=== PATIENT | female | born 1950 | race Two or more races ===

== ENCOUNTER 2020-01-24 14:14 | Outpatient (REF) | payer MEDICARE, SELFPAY ==
--- NOTE | 2020-01-24 14:32 | US_ITS ---
EXAMINATION: US VENOUS ULTRASOUND WITH DOPPLER LOWER EXTREMITY, RIGHT CLINICAL INFORMATION: Localized edema right lower extremity. Assess for occult DVT COMPARISON: Venous ultrasound right lower extremity 06/01/2013 TECHNIQUE: Ultrasound of the deep veins is performed from the hip to the calf with compression sonography and color and pulse Doppler assessment. Spectral analysis with color-flow imaging is performed. FINDINGS: There is normal venous compression and respiratory variation and augmented flow. The visualized common femoral vein, superficial femoral vein, profunda femoral vein, popliteal vein, and the trifurcation region shows no evidence of deep venous thrombosis. There is no popliteal fossa cyst. US/US venous duplex LE RT IMPRESSION: No DVT demonstrated in the right lower extremity.
== END 2020-01-24 14:15 | disposition home or self-care (01) ==
LOC: HO.HMGCX 14:14
PROVIDERS: PCP Internal Medicine; Visit Provider Physician Assistant
DX: R60.0 Localized edema (principal)
CPT/HCPCS: 93971

== ENCOUNTER → 2020-01-31 14:52 | Outpatient (BNV) | payer MEDICARE, SELFPAY | PROVIDERS: PCP Internal Medicine; Visit Provider Internal Medicine Medical Oncology | DX: M79.604 Pain in right leg (principal); M79.605 Pain in left leg; Z86.718 Personal history of other venous thrombosis and embolism | CPT/HCPCS: 99213; 99214 ==

== ENCOUNTER → 2020-02-15 08:17 | Outpatient (BNVA) | payer MEDICARE, SELFPAY | PROVIDERS: PCP Internal Medicine; Visit Provider Student in an Organized Health Care Education/Training Program | DX: M17.12 Unilateral primary osteoarthritis, left knee (principal); M17.11 Unilateral primary osteoarthritis, right knee; D86.9 Sarcoidosis, unspecified | CPT/HCPCS: 99212 ==

== ENCOUNTER 2020-03-20 13:59 | Outpatient (REF) | payer MEDICARE, SELFPAY ==
--- NOTE | 2020-03-20 14:03 | MM_ITS ---
EXAMINATION: MM SCREENING DIGITAL BREAST TOMOSYNTHESIS, BILATERAL CLINICAL INFORMATION: Screening. Asymptomatic. The lifetime risk of breast cancer based on the Tyrer-Cuzick Model is 4%. COMPARISON: Mammography: 11/05/2018, 10/23/2017, 06/23/2015 TECHNIQUE: Digital breast tomosynthesis is performed in both the craniocaudal and mediolateral oblique views along with computer-aided detection (CAD). Synthesized 2D images are generated from the tomosynthesis. FINDINGS: There are scattered areas of fibroglandular density (ACR BI-RADS breast composition Category b). There are no significant masses, abnormal calcifications, or other abnormalities. Parenchymal pattern is similar to prior exams. No significant changes. MM/MM tomosynthesis screening BI IMPRESSION: No mammographic evidence of malignancy. ASSESSMENT: BI-RADS 1: Negative RECOMMENDATION: Routine annual mammography screening. This patient's information was entered into a reminder system with a target due date for their next mammogram.
== END 2020-03-20 14:00 | disposition home or self-care (01) ==
LOC: HO.MAMMO 13:59
PROVIDERS: PCP Internal Medicine; Visit Provider Internal Medicine
DX: Z12.31 Encounter for screening mammogram for malignant neoplasm of breast (principal)
CPT/HCPCS: 77063; 77067

== ENCOUNTER → 2020-03-28 15:02 | Outpatient (BNVA) | payer MEDICARE, SELFPAY | PROVIDERS: PCP Internal Medicine; Referring Provider Internal Medicine; Visit Provider Student in an Organized Health Care Education/Training Program | DX: Z13.89 Encounter for screening for other disorder (principal) | CPT/HCPCS: Q3014 ==

== ENCOUNTER → 2020-08-15 13:23 | Outpatient (BNVA) | payer MEDICARE, SELFPAY | PROVIDERS: PCP Internal Medicine; Visit Provider Student in an Organized Health Care Education/Training Program | DX: M25.50 Pain in unspecified joint (principal); Z79.899 Other long term (current) drug therapy | CPT/HCPCS: 99212 ==

== ENCOUNTER 2020-08-24 07:26 | Outpatient (REF) | payer MEDICARE, SELFPAY ==
--- NOTE | ~2020-08-24 | XR_ITS ---
EXAMINATION: XR KNEE, LEFT CLINICAL INFORMATION: Osteoarthritis. COMPARISON: 08/21/2015 TECHNIQUE: 4 views of the left knee. FINDINGS: No acute fracture or dislocation of the left knee is identified. There has been some progression in degenerative change involving the lateral joint space compartment with mild narrowing and marginal spurring present. There is again noted to be significant degenerative change of the patellofemoral joint with narrowing of the lateral facet and prominent marginal spurring. There is a small left knee effusion. There is a faintly seen rim calcified density about the region of the posterior inferior joint space which may represent a calcification/loose body. XR/XR knee LT 4V IMPRESSION: Some progression in degenerative change of the patellofemoral and lateral joint space compartment. Loose body within the region of the popliteal fossa.
[2020-08-24 09:14] LABS: Alanine Aminotransferase 15 U/L (0-31); Albumin Level 4.6 g/dL (3.5-5.0); Alkaline Phosphatase 87 U/L (39-117); Anion Gap 12 (12-20); Aspartate Amino Transferase 20 U/L (5-31); Bilirubin Total 0.5 mg/dL (0.0-1.0); Blood Urea Nitrogen 17 mg/dL (9-16); Calcium 9.4 mg/dL (8.4-10.2); Carbon Dioxide 28 mmol/L (22-29); Chloride 105 mmol/L (96-108); Cholesterol 204 mg/dL; Estimated Glomerular Filt Rate 59; Glucose Fasting 122 mg/dL (60-99); HDL Cholesterol 56 mg/dL; LDL Cholesterol Calculated 128 mg/dl; Potassium 4.6 mmol/L (3.3-5.1); Sodium 140 mmol/L (135-145); Triglycerides 102 mg/dL
== END 2020-08-24 07:27 | disposition home or self-care (01) ==
LOC: HO.LAB 07:26
PROVIDERS: Absent Provider Student in an Organized Health Care Education/Training Program; PCP Internal Medicine; Visit Provider Internal Medicine
DX: M17.12 Unilateral primary osteoarthritis, left knee (principal); M25.50 Pain in unspecified joint; E78.5 Hyperlipidemia, unspecified
CPT/HCPCS: 36415; 73564; 80053; 80061

== ENCOUNTER → 2020-09-06 12:39 | Outpatient (BNVA) | payer MEDICARE, SELFPAY | PROVIDERS: PCP Internal Medicine; Visit Provider Orthopaedic Surgery | DX: M17.12 Unilateral primary osteoarthritis, left knee (principal) | CPT/HCPCS: 99202 ==

== ENCOUNTER 2020-11-23 07:20 | Outpatient (REF) | payer MEDICARE, SELFPAY ==
[2020-11-23 08:33] LABS: Alanine Aminotransferase 23 U/L (0-31); Albumin Level 4.4 g/dL (3.5-5.0); Alkaline Phosphatase 78 U/L (39-117); Anion Gap 11 (12-20); Aspartate Amino Transferase 22 U/L (5-31); Bilirubin Total 0.7 mg/dL (0.0-1.0); Blood Urea Nitrogen 17 mg/dL (9-16); Calcium 9.7 mg/dL (8.4-10.2); Carbon Dioxide 28 mmol/L (22-29); Chloride 106 mmol/L (96-108); Cholesterol 161 mg/dL; Estimated Glomerular Filt Rate > 60; Glucose Fasting 117 mg/dL (60-99); HDL Cholesterol 49 mg/dL; LDL Cholesterol Calculated 77 mg/dl; Potassium 4.1 mmol/L (3.3-5.1); Sodium 141 mmol/L (135-145); Total Protein 6.9 g/dL (6.5-8.0); Triglycerides 175 mg/dL
[2020-11-23 09:02] LABS: Thyroid Stimulating Hormone 4.32 uIU/mL (0.32-4.0)
== END 2020-11-23 07:21 | disposition home or self-care (01) ==
LOC: HO.LAB 07:20
PROVIDERS: PCP Internal Medicine; Visit Provider Internal Medicine
DX: E78.5 Hyperlipidemia, unspecified (principal); R73.02 Impaired glucose tolerance (oral); E66.9 Obesity, unspecified
CPT/HCPCS: 36415; 80053; 80061; 84443

== ENCOUNTER 2021-01-17 09:49 | Outpatient (REF) | payer MEDICARE, SELFPAY ==
--- NOTE | ~2021-01-17 | US_ITS ---
EXAMINATION: US THYROID CLINICAL INFORMATION: Goiter COMPARISON: None TECHNIQUE: Linear transducer reyes-scale and color Doppler examination with attention to the region of the thyroid. FINDINGS: SIZE: Measurements of the thyroid lobes and nodules are given in sagittal, anteroposterior and transverse dimensions respectively. Right Thyroid Lobe: 4.6 x 1.3 x 1.7 cm, volume 5.4 mL. Parenchyma: The gland echotexture is homogeneous. Thyroid vascularity is normal. Left Thyroid Lobe: 3.2 x 1.4 x 1.2 cm, volume 2.9 mL. Parenchyma: The gland echotexture is homogeneous. Thyroid vascularity is normal. Isthmus: 0.22 cm in maximum AP dimension. Estimated total number of nodules greater than or equal to 1 cm: 0. Cottage Master nodules are described as follows: 1. Location: Right mid. Size: 0.4 x 0.4 x 0.5 cm, volume 0.04 mL. Nodule characteristics: Composition: Solid/almost completely solid (2). Echogenicity: Hypoechoic (2). Shape: Not taller than wide (0). Margins: Smooth (0). Echogenic Foci: Punctate echogenic foci (3). ACR TI-RADS total points: 7 ACR TI-RADS category: 5 NODES: No lymphadenopathy is seen in the tissue surrounding the thyroid gland. US/US thyroid IMPRESSION: Solitary 0.5 cm nodule in the right lobe. This is a category 5 nodule. Annual follow-up for 5 years is recommended. ACR TI-RADS RECOMMENDATION REFERENCE: Ultrasound-guided fine-needle aspiration, followup ultrasound, no further follow up. * TR1 (0 point) and TR 2 (2 points): No FNA or follow up * TR3 (3 points): FNA if more than or equal to 2.5 cm in maximum dimension, followup ultrasound in 1, 3 and 5 years if 1.5 to 2.4 cm in maximum dimension. * TR4 (4-6 points): FNA if more than or equal to 1.5 cm in maximum dimension, followup ultrasound in 1, 2, 3 and 5 years if 1 to 1.4 cm in maximum dimension. * TR5 (more than or equal to 7 points): FNA if more than or equal to 1 cm in maximum dimension, followup ultrasound every year for 5 years if 0.5 to 0.9 cm in maximum dimension. * TR3, TR4 or TR5 nodules that are below the size threshold for follow up receive no follow up.
== END 2021-01-17 09:50 | disposition home or self-care (01) ==
LOC: HO.US 09:49
PROVIDERS: PCP Internal Medicine; Visit Provider Internal Medicine
DX: E04.9 Nontoxic goiter, unspecified (principal)
CPT/HCPCS: 76536

== ENCOUNTER 2021-03-18 08:48 | Outpatient (REF) | payer MEDICARE, SELFPAY ==
--- NOTE | ~2021-03-18 | MM_ITS ---
EXAMINATION: MM DIAGNOSTIC DIGITAL BREAST TOMOSYNTHESIS, BILATERAL US DIAGNOSTIC ULTRASOUND BREAST, RIGHT CLINICAL INFORMATION: Recent pain lower outer right breast. 1 cm palpable area noted at clinical exam 7:00 position 6 cm from nipple. Due for yearly. The lifetime risk of breast cancer based on the Tyrer-Cuzick Model is 4%. COMPARISON: Mammography: 03/20/2020, 11/05/2018, 10/23/2017, 06/23/2015 TECHNIQUE: Digital breast tomosynthesis is performed in both the craniocaudal and mediolateral oblique views along with computer-aided detection (CAD). Synthesized 2D images are generated from the tomosynthesis. Additional left CC view is provided. Ultrasound right breast is targeted to the areas of patient and clinical concern. Grayscale imaging and color Doppler are performed without and with harmonics. FINDINGS: There are scattered areas of fibroglandular density (ACR BI-RADS breast composition Category b). Parenchymal pattern is similar to prior exams. There is no interval mass or developing density or architectural abnormality. No abnormal calcifications. No skin thickening or coarsening of the Taras's ligaments. The axilla and skin contours are unremarkable. Ultrasound right breast demonstrates no cystic or solid mass or architectural abnormality. No focal duct ectasia. No skin thickening or edema tracking in soft tissue planes. Results are discussed with the patient at time of visit. MM/MM tomosynthesis diagnostic BI IMPRESSION: No mammographic evidence of malignancy or inflammatory changes. Right breast ultrasound unremarkable. ASSESSMENT: BI-RADS 1: Negative RECOMMENDATION: 1. Patient should be managed based on the clinical impression. If clinically indicated, further evaluation may be considered with surgical consult. Decision to proceed with biopsy should be based on clinical grounds and degree of clinical concern. 2. Otherwise, routine annual screening mammography. This patient's information was entered into a reminder system with a target due date for their next mammogram.
== END 2021-03-18 08:49 | disposition home or self-care (01) ==
LOC: HO.MAMMO 08:48
PROVIDERS: Visit Provider Nurse Practitioner Family
DX: N64.4 Mastodynia (principal)
CPT/HCPCS: 76642; 77062; 77066

== ENCOUNTER 2021-04-12 07:05 | Outpatient (REF) | payer MEDICARE, SELFPAY ==
[2021-04-12 08:03] LABS: Alanine Aminotransferase 20 U/L (0-31); Albumin Level 4.5 g/dL (3.5-5.0); Alkaline Phosphatase 72 U/L (39-117); Anion Gap 13 (12-20); Aspartate Amino Transferase 21 U/L (5-31); Bilirubin Total 0.6 mg/dL (0.0-1.0); Blood Urea Nitrogen 18 mg/dL (9-16); Carbon Dioxide 29 mmol/L (22-29); Chloride 105 mmol/L (96-108); Cholesterol 244 mg/dL; Estimated Glomerular Filt Rate > 60; Glucose Fasting 112 mg/dL (60-99); HDL Cholesterol 62 mg/dL; LDL Cholesterol Calculated 161 mg/dl; Potassium 4.1 mmol/L (3.3-5.1); Sodium 143 mmol/L (135-145); Total Protein 7.2 g/dL (6.5-8.0); Triglycerides 105 mg/dL
[2021-04-12 08:26] LABS: Thyroid Stimulating Hormone 4.69 uIU/mL (0.32-4.0)
[2021-04-15 17:46] LABS: Thyroglobulin Antibodies <1 IU/mL (< or = 1); Thyroid Peroxidase Antibodies 1 IU/mL (<9)
== END 2021-04-12 07:06 | disposition home or self-care (01) ==
LOC: HO.LAB 07:05
PROVIDERS: PCP Internal Medicine; Visit Provider Internal Medicine
DX: E66.9 Obesity, unspecified (principal); E78.5 Hyperlipidemia, unspecified; R79.89 Other specified abnormal findings of blood chemistry; R73.02 Impaired glucose tolerance (oral)
CPT/HCPCS: 36415; 80053; 80061; 84439; 84443; 86376; 86800

== ENCOUNTER 2021-05-22 06:51 | Outpatient (REF) | payer MEDICARE, SELFPAY ==
[2021-05-22 07:03] LABS: MANUAL DIFF FLAG NO
--- NOTE | 2021-05-22 07:07 | ECG_ITS ---
Test Reason : z01.818 Blood Pressure : / mmHG Vent. Rate : 053 BPM Atrial Rate : 053 BPM P-R Int : 168 ms QRS Dur : 082 ms QT Int : 436 ms P-R-T Axes : 039 -33 004 degrees QTc Int : 409 ms Sinus bradycardia Left axis deviation Abnormal ECG When compared with ECG of 12-FEB-2019 12:17, No significant change was found Referred By: Preethi Hsu Electronically Signed By:KALYAN TRIVEDI MD
[2021-05-22 07:21] LABS: Basophils Percent Auto 0.2 % (0-2); Eosinophils Absolute Auto 0.1 X10*3/uL (0.0-0.4); Eosinophils Percent Auto 2.9 % (0-4); Hematocrit 39.6 % (37.0-47.0); Hemoglobin 12.9 g/dl (12.0-16.0); Imm Gran Abs Auto 0.01 X10*3/uL (0.00-0.03); Imm Gran Pct Auto 0.2 % (0.0-0.4); Lymphocytes Absolute Auto 1.9 X10*3/uL (1.2-4.9); Lymphocytes Percent Auto 38.5 % (20-40); Mean Corpuscular HGB Conc 32.6 g/dl (31.0-35.0); Mean Corpuscular Hemoglobin 28.6 pg (27.0-33.0); Mean Corpuscular Volume 87.8 fL (80.0-98.0); Mean Platelet Volume 9.5 fL (9.4-12.3); Monocytes Absolute Auto 0.3 X10*3/uL (0.1-1.2); Neutrophils Absolute Auto 2.5 x10*3/uL (2.0-8.3); Neutrophils Percent Auto 51.2 % (45-73); Platelet Count 223 X10*3/uL (160-400); Red Blood Count 4.51 X10*6/uL (4.20-5.50); Red Cell Distribution Width 13.3 % (11.0-16.0); White Blood Count 4.9 X10*3/uL (4.8-10.8)
[2021-05-22 07:55] LABS: Alanine Aminotransferase 25 U/L (0-31); Albumin Level 4.4 g/dL (3.5-5.0); Alkaline Phosphatase 81 U/L (39-117); Anion Gap 11 (12-20); Aspartate Amino Transferase 20 U/L (5-31); Bilirubin Total 0.5 mg/dL (0.0-1.0); Blood Urea Nitrogen 14 mg/dL (9-16); Calcium 9.8 mg/dL (8.4-10.2); Carbon Dioxide 28 mmol/L (22-29); Chloride 105 mmol/L (96-108); Estimated Glomerular Filt Rate > 60; Glucose Fasting 112 mg/dL (60-99); Potassium 4.3 mmol/L (3.3-5.1); Sodium 140 mmol/L (135-145); Total Protein 6.9 g/dL (6.5-8.0)
[2021-05-22 08:18] LABS: Thyroid Stimulating Hormone 4.11 uIU/mL (0.32-4.0)
== END 2021-05-22 06:52 | disposition home or self-care (01) ==
LOC: HO.LAB 06:51
PROVIDERS: PCP Internal Medicine; Visit Provider Internal Medicine
DX: Z01.818 Encounter for other preprocedural examination (principal); D64.9 Anemia, unspecified; K21.9 Gastro-esophageal reflux disease without esophagitis; R94.6 Abnormal results of thyroid function studies
CPT/HCPCS: 36415; 80053; 84443; 85025; 93005

== ENCOUNTER 2021-05-27 09:14 | Outpatient (REF) | payer MEDICARE, SELFPAY ==
[2021-05-27 11:04] LABS: CDiff Gene PCR NEGATIVE (Negative)
== END 2021-05-27 09:15 | disposition home or self-care (01) ==
LOC: HO.LNP 09:14
PROVIDERS: Visit Provider Internal Medicine
DX: K21.9 Gastro-esophageal reflux disease without esophagitis (principal)
CPT/HCPCS: 87493

== ENCOUNTER → 2021-06-05 13:34 | Outpatient (BNVA) | payer MEDICARE, SELFPAY | PROVIDERS: PCP Internal Medicine; Visit Provider Nurse Practitioner Family | DX: M25.50 Pain in unspecified joint (principal) | CPT/HCPCS: 99212 ==

== ENCOUNTER 2021-06-10 10:12 | Day surgery (SDC) | payer MEDICARE, SELFPAY ==
[2021-06-04 16:31] VITALS: BMI 33.3
--- NOTE | 2021-06-07 08:49 | MHC.SHP ---
Pre-Procedural Eval Section A Date of Service: 06/07/21 The patient is an INPATIENT: No Changes since office visit: No Cold of Flu in the past 2 weeks, No New Medical Problems, No Changes in Medication and No Patient answered all questions The History & Physical has been completed within 30 days and I have reviewed it.: Yes Section B Chief Complaint: left and right upper eyelid Allergies: Allergies Allergy/AdvReac Type Severity Reaction Status Date / Time codeine [CODEINE] Allergy Intermediate TACHYCARDIA Verified 06/05/21 13:49 phentermine Allergy Intermediate Palpitation Verified 06/05/21 13:49 s Plan Diagnosis/Plan: Unchanged I have reviewed the history and physical and performed a pertinent physical examination on my patient. No changes have occurred unless specified.
--- NOTE | 2021-06-07 10:30 | P.CONAN_ITS ---
Documented by User: Maria Isabel Santillan NP 06/07/21 10:35 HPI - Anesthesia Eval Consult details Narrative: 70yo F for Bilateral Blepharoplasty PMFSH Active Problems Active Problems: All Active Problems (Updated 05/16/21 @ 14:48 by Preethi Hsu MD) Edema of right lower extremity (Acute) Right leg DVT (Acute) Primary osteoarthritis of right knee (Acute) Polyarthralgia (Acute) Breast pain, right (Acute) Screening for breast cancer (Acute) Right shoulder pain (Acute) Pre-op evaluation (Acute) Thyroid nodule (Acute) Hypothyroidism (Acute) Vertigo (Acute) GERD (gastroesophageal reflux disease) (Acute) Mild major depression, single episode (Acute) Goiter (Acute) Elevated TSH (Acute) Obese (Acute) Impaired glucose tolerance (Acute) Mixed hyperlipidemia (Acute) Sarcoid (Acute) Primary osteoarthritis of left knee (Acute) Past Medical History Medical History Anxiety Elevated TSH GERD (gastroesophageal reflux disease) Goiter History of DVT (deep vein thrombosis) Hypothyroidism Impaired glucose tolerance Mild major depression, single episode Mixed hyperlipidemia Obese Pre-op evaluation Primary osteoarthritis of left knee Sarcoid Thyroid nodule Vertigo Family History Family History Father Renal cancer Mother No problems noted. Brother Myocardial infarction Surgical History Surgical History History of section History of tubal ligation Hx of colonoscopy Social History Social History Housing: House Alcohol intake: current Alcohol intake frequency: holidays/special occasions only Alcohol type: wine Patient Tobacco Use Status: Never used Tobacco e-Cigarette/Vaping Use: Never Used Second Hand Smoke Exposure: No Use of substances other than those prescribed or required for medical reasons: No Have you been hit, kicked, punched, or otherwise hurt by someone within the past year? If so, by whom?: No Are you DNR?: No Advance Directives: No Advance Directives Information Provided: Yes Advance Directives on File: No service: No Current occupational status: retired Cognitive needs: No Hearing needs: No Vision needs: No Meds Allergies Allergy/AdvReac Type Severity Reaction Status Date / Time codeine [CODEINE] Allergy Intermediate TACHYCARDIA Verified 06/10/21 11:03 phentermine Allergy Intermediate Palpitation Verified 06/10/21 11:03 s Home Medications Medication Instructions Recorded Confirmed Last Taken Type acetaminophen 650 mg 650 mg PO Q12H PRN 02/15/20 06/04/21 Unknown History tablet,extended release (Tylenol Arthritis Pain) bupropion HCl 150 mg 24 hr tablet, 150 mg PO QAM 06/04/21 06/04/21 Unknown History extended release diclofenac sodium 1 % topical gel 2 g TOPICAL BID PRN 06/04/21 06/04/21 Unknown History Exam Exam Date and Time: June 07, 2021 1030 Height,Weight and Vital Signs: Height 5 ft 3 in Weight 85.275 kg Narrative Narrative: EKG 05/2021 Vent. Rate : 053 BPM ? ? Atrial Rate : 053 BPM ?? P-R Int : 168 ms? QRS Dur : 082 ms ? ? QT Int : 436 ms ? ? ? P-R-T Axes : 039 -33 004 degrees ?? QTc Int : 409 ms ? Sinus bradycardia Left axis deviation Abnormal ECG When compared with ECG of 12-FEB-2019 12:17, No significant change was found Assessment and Plan Assessment Anesthesia Assessment: Chart Reviewed Documented by User: Mikki Villa MD 06/10/21 11:44 [facility] Past Medical History Medical History Anxiety Elevated TSH GERD (gastroesophageal reflux disease) Goiter History of DVT (deep vein thrombosis) Hypothyroidism Impaired glucose tolerance Mild major depression, single episode Mixed hyperlipidemia Obese Pre-op evaluation Primary osteoarthritis of left knee Sarcoid Thyroid nodule Vertigo Family History Family History Father Renal cancer Mother No problems noted. Brother Myocardial infarction Surgical History Surgical History History of section History of tubal ligation Hx of colonoscopy History of Problems with Anesthesia: No Social History Social History Housing: House Alcohol intake: current Alcohol intake frequency: holidays/special occasions only Alcohol type: wine Patient Tobacco Use Status: Never used Tobacco e-Cigarette/Vaping Use: Never Used Second Hand Smoke Exposure: No Use of substances other than those prescribed or required for medical reasons: No Have you been hit, kicked, punched, or otherwise hurt by someone within the past year? If so, by whom?: No Are you DNR?: No Advance Directives: No Advance Directives Information Provided: Yes Advance Directives on File: No service: No Current occupational status: retired Cognitive needs: No Hearing needs: No Vision needs: No Meds Allergies Allergy/AdvReac Type Severity Reaction Status Date / Time codeine [CODEINE] Allergy Intermediate TACHYCARDIA Verified 06/10/21 11:03 phentermine Allergy Intermediate Palpitation Verified 06/10/21 11:03 s Home Medications Medication Instructions Recorded Confirmed Last Taken Type acetaminophen 650 mg 650 mg PO Q12H PRN 02/15/20 06/04/21 Unknown History tablet,extended release (Tylenol Arthritis Pain) bupropion HCl 150 mg 24 hr tablet, 150 mg PO QAM 06/04/21 06/04/21 Unknown History extended release diclofenac sodium 1 % topical gel 2 g TOPICAL BID PRN 06/04/21 06/04/21 Unknown History Exam Airway Mallampati Class: II TM Dist: >3cm Neck ROM: Full Denture: Upper and Lower Loose/Missing/Broken Teeth: Yes, Upper and Lower Heart: RRR Lungs: CTA Assessment and Plan Final Anesthetic Review History of Problems with Anesthesia: No NPO: Yes ASA Class: II Final Preanesthetic Review: Meds/Allgs Chart Reviewed, Consent Obtained/Reviewed and Anes Risks/Benef Reviewed Patient Risk: Low Procedure Risk: Low Anesthetic Plan Anesthetic Plan: MAC: Disposition: Standard PACU
[2021-06-10 11:04] VITALS: BP 146/75; PULSE 62; RESP 16; TEMP 36.4; O2SAT 98
[2021-06-10] MEDS: Lactated Ringers 500 ML 50 ML IV (11:12)
--- NOTE | 2021-06-10 14:08 | HO.PNOPHT ---
Ophthalmology Procedure Procedure Date of Service: 06/10/21 Ophthalmology Viscoelastic: Not Applicable Ophthalmology Lenses: Not Applicable Procedure Notes: PREOPERATIVE DIAGNOSIS: Decreased visual field secondary to dermatochalasia POSTOPERATIVE DIAGNOSIS: Same PROCEDURE: Bilateral Blepharoplasty, upper eyelids SURGEON: Yehuda Parks M.D. ANESTHESIA: Local with sedation ESTIMATED BLOOD LOSS: None COMPLICATIONS: None After obtaining informed consent, the patient was brought to the operating room and placed in supine position. After adequate sedation per Anesthesia, the eyes were prepped and draped in the usual sterile fashion. Attention was directed to the right eye where a double pinch test was completed to assure excess tissue was not removed from the upper lid. The margin was marked at the proposed incision sites. The left eye was done in a similar fashion. 2% Lidocaine with epinephrine was then instilled subcutaneously along the margin of the pre-marked skin incisions. #15 scalpel blade was then utilized to create the incisions. Using a combination of sharp and blunt dissection with Leroy scissors, the epidermis was removed. Hemostasis was achieved with cautery. 6-0 plain suture was then utilized to close the incision site. Attention was directed to the left upper lid where subcutaneous 2% with Epinephrine Lidocaine was instilled along the pre-marked areas. A #15 scalpel blade was then utilized to create the incisions followed by sharp and blunt dissection with Leroy scissors to remove the overlying epidermis. Hemostasis was achieved with cautery, followed by closure with 6-0 plain suture. The patient tolerated the procedure well. The patient will be followed up in the a.m. Topical antibiotic ointment was instilled over the incision sites and ice as tolerated for 48 hours.
[2021-06-10 14:12] VITALS: BP 148/77; PULSE 59; RESP 16; TEMP 36.4; O2SAT 99
[2021-06-10 14:27] VITALS: BP 134/79; PULSE 62; RESP 16; O2SAT 97
[2021-06-10] MEDS: Acetaminophen 325 MG TABLET 650 MG PO (14:27)
[2021-06-10 14:42] VITALS: BP 136/76; PULSE 63; RESP 16; TEMP 36.4; O2SAT 100
== END 2021-06-10 15:24 | disposition home or self-care (01) ==
PROVIDERS: PCP Internal Medicine; Visit Provider Ophthalmology
PROC: (CPT 15823; principal; 2021-06-10 13:10)
DX: H02.834 Dermatochalasis of left upper eyelid (principal); H02.831 Dermatochalasis of right upper eyelid; H53.40 Unspecified visual field defects; Z79.899 Other long term (current) drug therapy; Z88.8 Allergy status to other drugs, medicaments and biological substances
CPT/HCPCS: 15823; J2250; J3010

== ENCOUNTER → 2021-09-04 14:15 | Outpatient (BNVA) | payer MEDICARE, SELFPAY | PROVIDERS: PCP Internal Medicine; Visit Provider Internal Medicine Endocrinology, Diabetes & Metabolism | DX: E03.9 Hypothyroidism, unspecified (principal); E04.1 Nontoxic single thyroid nodule | CPT/HCPCS: 99202 ==

== ENCOUNTER 2021-09-23 06:46 | Outpatient (REF) | payer MEDICARE, SELFPAY ==
[2021-09-23 08:46] LABS: Alanine Aminotransferase 16 U/L (0-31); Albumin Level 4.2 g/dL (3.5-5.0); Alkaline Phosphatase 63 U/L (39-117); Anion Gap 10 (12-20); Aspartate Amino Transferase 15 U/L (5-31); Bilirubin Total 0.4 mg/dL (0.0-1.0); Blood Urea Nitrogen 17 mg/dL (9-16); Carbon Dioxide 28 mmol/L (22-29); Chloride 107 mmol/L (96-108); Cholesterol 236 mg/dL; Estimated Glomerular Filt Rate > 60; Glucose Fasting 126 mg/dL (60-99); HDL Cholesterol 53 mg/dL; LDL Cholesterol Calculated 139 mg/dl; Sodium 141 mmol/L (135-145); Total Protein 6.5 g/dL (6.5-8.0); Triglycerides 222 mg/dL
[2021-09-23 08:51] LABS: Free T4 (Free Thyroxine) 1.02 ng/dL (0.71-1.85); Thyroid Stimulating Hormone 1.36 uIU/mL (0.32-4.0)
[2021-09-25 13:32] LABS: Thyroid Peroxidase Antibodies 1 IU/mL (<9)
== END 2021-09-23 06:47 | disposition home or self-care (01) ==
LOC: HO.LAB 06:46
PROVIDERS: Internal Medicine Endocrinology, Diabetes & Metabolism; PCP Internal Medicine; Visit Provider Internal Medicine
DX: Z00.00 Encounter for general adult medical examination without abnormal findings (principal); E78.5 Hyperlipidemia, unspecified; E03.9 Hypothyroidism, unspecified
CPT/HCPCS: 36415; 80053; 80061; 84439; 84443; 86376

== ENCOUNTER 2021-10-30 06:38 | Outpatient (REF) | payer MEDICARE, SELFPAY ==
[2021-10-30 08:05] LABS: Free T4 (Free Thyroxine) 0.99 ng/dL (0.71-1.85); Thyroid Stimulating Hormone 3.07 uIU/mL (0.32-4.0)
== END 2021-10-30 06:39 | disposition home or self-care (01) ==
LOC: HO.LAB 06:38
PROVIDERS: PCP Internal Medicine; Visit Provider Internal Medicine Endocrinology, Diabetes & Metabolism
DX: E03.9 Hypothyroidism, unspecified (principal)
CPT/HCPCS: 36415; 84439; 84443

== ENCOUNTER 2021-12-28 07:17 | Outpatient (REF) | payer MEDICARE, SELFPAY ==
--- NOTE | ~2021-12-28 | MM_ITS ---
EXAMINATION: MM SCREENING DIGITAL BREAST TOMOSYNTHESIS, BILATERAL CLINICAL INFORMATION: Screening. Asymptomatic. The lifetime risk of breast cancer based on the Tyrer-Cuzick Model is 4%. COMPARISON: Mammography: 03/18/2021, 03/20/2020, 11/05/2018; ultrasound right breast 03/18/2021 TECHNIQUE: Digital breast tomosynthesis is performed in both the craniocaudal and mediolateral oblique views along with computer-aided detection (CAD). Synthesized 2D images are generated from the tomosynthesis. Additional left MLO view is provided. FINDINGS: There are scattered areas of fibroglandular density (ACR BI-RADS breast composition Category b). There are no significant masses, abnormal calcifications, or other abnormalities. Parenchymal pattern is similar to prior studies. Incidental intramammary nodes again noted bilateral posterior upper outer quadrants. The axilla and skin contours are unremarkable. MM/MM tomosynthesis screening BI IMPRESSION: No mammographic evidence of malignancy. ASSESSMENT: BI-RADS 2: Benign RECOMMENDATION: Routine annual mammography screening. This patient's information was entered into a reminder system with a target due date for their next mammogram.
== END 2021-12-28 07:18 | disposition home or self-care (01) ==
LOC: HO.MAMMO 07:17
PROVIDERS: PCP Internal Medicine; Visit Provider Internal Medicine
DX: Z12.31 Encounter for screening mammogram for malignant neoplasm of breast (principal)
CPT/HCPCS: 77063; 77067

== ENCOUNTER → 2022-03-12 08:01 | Outpatient (BNVA) | payer MEDICARE, SELFPAY | PROVIDERS: PCP Internal Medicine; Visit Provider Internal Medicine Endocrinology, Diabetes & Metabolism | DX: E04.1 Nontoxic single thyroid nodule (principal); E03.9 Hypothyroidism, unspecified | CPT/HCPCS: 99212 ==

== ENCOUNTER 2022-04-09 13:55 | Outpatient (REF) | payer MEDICARE, SELFPAY ==
--- NOTE | ~2022-04-09 | US_ITS ---
EXAMINATION: US THYROID CLINICAL INFORMATION: Nontoxic multinodular goiter. COMPARISON: Ultrasound thyroid 01/17/2021. TECHNIQUE: Linear transducer grayscale and color Doppler examination with attention to the region of the thyroid. FINDINGS: SIZE: Measurements of the thyroid lobes and nodules are given in sagittal, anteroposterior and transverse dimensions respectively. Right Thyroid Lobe: 4.0 x 1.1 x 1.5 cm, volume 3.4 mL. Previously 4.6 x 1.3 x 1.7 cm, volume 5.6 mL. Parenchyma: The gland echotexture is heterogeneous. Thyroid vascularity is normal. Left Thyroid Lobe: 2.8 x 1.1 x 1.0 cm, volume 1.7 mL. Previously 3.2 x 1.4 x 1.2 cm, volume 2.9 mL. Parenchyma: The gland echotexture is heterogeneous. Thyroid vascularity is normal. Isthmus: 0.3 cm in maximum AP dimension. Previously 0.2 cm. No focal thyroid nodule is seen. NODES: No lymphadenopathy is seen in the tissue surrounding the thyroid gland. US/US thyroid IMPRESSION: 1. There is heterogeneity of thyroid echotexture, which can be associated with thyroiditis. 2. No thyroid nodule or goiter is noted. ACR TI-RADS RECOMMENDATION REFERENCE: Ultrasound-guided fine-needle aspiration, followup ultrasound, no further follow up. * TR1 (0 point) and TR2 (2 points): No FNA or follow up. * TR3 (3 points): FNA if more than or equal to 2.5 cm in maximum dimension, followup ultrasound in 1, 3 and 5 years if 1.5 to 2.4 cm in maximum dimension. * TR4 (4-6 points): FNA if more than or equal to 1.5 cm in maximum dimension, followup ultrasound in 1, 2, 3 and 5 years if 1 to 1.4 cm in maximum dimension. * TR5 (more than or equal to 7 points): FNA if more than or equal to 1 cm in maximum dimension, followup ultrasound every year for 5 years if 0.5 to 0.9 cm in maximum dimension. * TR3, TR4 or TR5 nodules that are below the size threshold for followup receive no follow up.
== END 2022-04-09 13:56 | disposition home or self-care (01) ==
LOC: HO.US 13:55
PROVIDERS: PCP Internal Medicine; Visit Provider Internal Medicine Endocrinology, Diabetes & Metabolism
DX: E04.2 Nontoxic multinodular goiter (principal)
CPT/HCPCS: 76536

== ENCOUNTER → 2022-05-13 10:29 | Outpatient (BNVA) | payer MEDICARE, SELFPAY | PROVIDERS: PCP Internal Medicine; Visit Provider Internal Medicine | DX: D86.9 Sarcoidosis, unspecified (principal) | CPT/HCPCS: 99212 ==

== ENCOUNTER → 2022-06-04 13:54 | Outpatient (BNVA) | payer MEDICARE, SELFPAY | PROVIDERS: PCP Internal Medicine; Visit Provider Nurse Practitioner Family | DX: M17.12 Unilateral primary osteoarthritis, left knee (principal); M25.512 Pain in left shoulder | CPT/HCPCS: 99212 ==

== ENCOUNTER 2022-10-22 13:37 | Outpatient (AMB) | payer MEDICARE, SELFPAY ==
[2022-10-22 13:51] VITALS: BP 122/76; PULSE 70; O2SAT 98; BMI 33.7
--- NOTE | 2022-10-22 13:51 | A.OFFPC_ITS ---
Vital Signs 10/22/22 13:51 Height 5 ft 3 in Weight 190 lb 6 oz BMI 33.7 BP 122/76 Blood Pressure Location Lt brachial Position Sitting Pulse 70 Pulse Source Pulse Oximeter Pulse Oximetry (%) 98 Oxygen Delivery Method Room Air Intake Visit Reasons: physical exam Intake Note: Patient is here today for a physical. Supervisor Evaporator Required: No Accompanied by: Self / Same As Patient Allergies codeine [CODEINE] Allergy (Intermediate, Verified 10/22/22 14:02) TACHYCARDIA phentermine Allergy (Intermediate, Verified 10/22/22 14:02) Palpitations Medication List - Last Reconciled 10/22/22 by Preethi Hsu MD acetaminophen ER (Tylenol Arthritis Pain) 650 mg PO Q12H PRN levothyroxine 75 mcg PO DAILY mirtazapine 15 mg PO BEDTIME 90 days pantoprazole 40 mg PO DAILY 90 days Tobacco use date assessed: 10/22/22 Fall risk assessment: No Falls in past year Last assessed Fall Risk: 10/22/22 Dental Screening Dental Screen Date: 10/22/22 Did you have a dental visit in the last 12 months?: Yes Did you have a dental problem in the last 6 months where you did not have access to dental care?: No Was dental information given to patient?: Patient has dentist HPI HPI Comments History of Present Illness Details This is a 71-year-old female with mild major depression that comes for her physical exam. Depression stable with mirtazapine. Last mammogram was December 2021 and was normal. Last colonoscopy was 2014 and was normal and next colonoscopy should be 2024. Denies any chest pain or shortness of breath. No fever or cough. [facility], [facility] Medical History Anxiety Elevated TSH GERD (gastroesophageal reflux disease) Goiter History of DVT (deep vein thrombosis) Hypothyroidism Impaired glucose tolerance Mild major depression, single episode Mixed hyperlipidemia Obese Pre-op evaluation Primary osteoarthritis of left knee Sarcoid Thyroid nodule Vertigo Surgical History History of section History of tubal ligation Hx of colonoscopy Family History Father Renal cancer Mother No problems noted. Brother Myocardial infarction Social History Housing: House Alcohol intake: current Alcohol intake frequency: a few times a month Alcohol type: wine Patient Tobacco Use Status: Never used Tobacco e-Cigarette/Vaping Use: Never Used Second Hand Smoke Exposure: No service: No Current occupational status: retired Cognitive needs: No Hearing needs: No Vision needs: No Questionnaire PHQ-9 Over the last 2 weeks, how often have you been bothered by any of the following problems? 1. Little interest or pleasure in doing things: not at all 2. Feeling down, depressed, or hopeless: not at all 3. Trouble falling or staying asleep, or sleeping too much: not at all 4. Feeling tired or having little energy: not at all 5. Poor appetite or overeating: not at all 6. Feeling bad about yourself - or that you are a failure or have let yourself or your family down: not at all 7. Trouble concentrating on things, such as reading the newspaper or watching television: not at all 8. Moving or speaking so slowly that other people could have noticed. Or the opposite - being so fidgety or restless that you have been moving around a lot more than usual: not at all 9. Thoughts that you would be better off or of hurting yourself in some way: not at all Total score: 0 Depression Screening Interpretation: Negative 63391 - PHQ-9 Billing: Yes Source: Developed by Drs. Cristopher Donnelly, Olga Lidia Velasco, Esteban Don and colleagues, with an educational jace from [employer]. Thrive Questionnaire Date Thrive assessed: 10/22/22 I am a: Patient What is your living situation today?: I have a steady place to live Within the past 12 months, did the food you bought not last and you didn't have the money to get more?: Never true Within the past 12 months, did you worry whether your food would run out before you got money to buy more?: Never true Do you have trouble paying for medicines?: No Do you have trouble getting transportation to medical appointments?: No Do you have trouble paying your heating and electricity bill?: No Do you have trouble taking care of your child, family member or friend?: No Do you have trouble with day-to-day activities such as bathing, preparing meals, shopping, managing finances, etc.?: No Are you currently unemployed and looking for a job?: No Are you interested in more education?: No Currently or been in a relationship where the following occur: no concerns reported AUDIT C Alcohol Use Questionnaire (AUDIT-C) 1. How often do you have a drink containing alcohol?: Monthly or less 2. How many drinks containing alcohol do you have on a typical day when you are drinking?: 1 or 2 3. How often do you have six or more drinks on one occasion?: Never Total Score: 1 TR-7 AMB Questionnaire TR-7 Date TR - 7 assessed: 10/22/22 Feeling nervous, anxious, or on edge: 0 = Not at all Not being able to stop or control worryin = Not at all Worrying too much about different things: 0 = Not at all Trouble relaxin = Not at all Being so restless that it is hard to sit still: 0 = Not at all Becoming easily annoyed or irritable: 0 = Not at all Feeling afraid as if something awful might happen: 0 = Not at all Total TR-7 score (0-4 normal; 5-9 mild; 10-14 moderate; 15-21 severe): 0 Source: Developed by Drs. Cristopher Donnelly, Olga Lidia Velasco, Esteban Don and colleagues, with an educational jace from [employer]. TR-7 Assessment Billing TR-7 Assessment Tool: TR-7 Assessment 71413 Review of Systems Const All systems reviewed & are unremarkable except as noted in HPI and below Eyes Reports no additional complaints, Denies change in vision and Denies other visual disturbances Card Denies chest pain at rest, Denies chest pain with activity, Denies edema, Denies irregular heart rhythm, Denies claudication, Denies dyspnea, Denies dyspnea on exertion, Denies orthopnea, Denies paroxysmal nocturnal dyspnea and Denies slow heart rate Resp Denies cough, Denies dyspnea and Denies dyspnea on exertion GI Denies abdominal pain, Denies change in bowel habits, Denies excessive flatus, Denies nausea and Denies vomiting Denies urinary incontinence, Denies urinary hesitancy and Denies urinary urgency Musc Denies abnormal gait, Denies atrophy, Denies deformity and Denies limited range of motion Skin/Breast Denies bleeding lesions, Denies changing lesions and Denies rash Neuro Denies abnormal gait and Denies lack of coordination Physical exam (Primary Care) Vital Signs: Last Vital Signs Pulse 70 10/22/22 13:51 BP 122/76 10/22/22 13:51 Pulse Ox 98 10/22/22 13:51 Oxygen Delivery Method Room Air 10/22/22 13:51 BMI result Body Mass Index 33.7 Tobacco/Smoking Status: Tobacco use Status Tobacco use date assessed 10/22/22 10/22/22 13:58 Patient Tobacco Use Status Never used Tobacco 10/22/22 13:51 e-Cigarette/Vaping Use Never Used 10/22/22 13:51 PHQ-9: PHQ-9 Score PHQ-9: Total score 0 10/22/22 14:07 Depression Screening Interpretation: Negative Thrive Assessment: Date of Thrive Assessment Date Thrive assessed 10/22/22 10/22/22 13:58 Currently or been in a relationship where the following occur: no concerns reported Const Orientation/consciousness: patient oriented x3 HENMT Head: Yes normal to inspection, Yes normocephalic and Yes atraumatic Ears: external ears normal Eyes General: appearance normal, both eyes and all related structures Eyelids: Yes eyelids normal Conjunctivae: conjunctivae normal Neck Neck: Yes normal visual inspection and Yes supple Resp Effort & Inspection: normal respiratory effort Auscultation: clear to auscultation bilaterally Cardio Jugular venous distension: no JVD Rate: regular rate Rhythm: regular rhythm Heart sounds: S1 normal heart sound present and S2 normal heart sound present GI Inspection: Yes normal to inspection Palpation (GI): Soft to palpation and nontender Auscultation: normal bowel sounds Skin General skin exam: no rashes or lesions noted Neuro General: patient oriented x3 and no focal motor deficits Extrem General: Yes full ROM Psych Appearance: grossly normal Assessment and Plan Assessment & Plan (1) Physical exam: Code(s): Z00.00 - Encounter for general adult medical examination without abnormal findings Plan: Repeat in a year (2) Mild major depression, single episode: Code(s): F32.0 - Major depressive disorder, single episode, mild Plan: Continue mirtazapine Orders: Orders Comprehensive Mikana. Panel Fast Today Z00.00 - Encounter for general adult medical examination without abnormal findings Lipid Panel Today Z00.00 - Encounter for general adult medical examination without abnormal findings Thyroid Stimulating Hormone Today E03.9 - Hypothyroidism, unspecified Coding Level of Care Code Est Pt Prev Care >65y(57566) Diagnoses Physical exam Z00.00 Mild major depression, single episode F32.0 Additional Codes TR-7 Assessment Billing - TR-7 Assessment Tool: TR-7 Assessment 85633 ([id number]) Time Spent (min) 31
== END 2022-10-22 14:11 | disposition home or self-care (01) ==
LOC: HO.HMGH 13:37
PROVIDERS: PCP Internal Medicine; Visit Provider Internal Medicine
DX: Z00.00 Encounter for general adult medical examination without abnormal findings (principal); F32.0 Major depressive disorder, single episode, mild
CPT/HCPCS: 99397

== ENCOUNTER 2023-03-10 08:15 | Outpatient (REF) | payer MEDICARE, SELFPAY ==
[2023-03-10 09:23] LABS: Alanine Aminotransferase 13 U/L (0-31); Albumin Level 4.3 g/dL (3.5-5.0); Alkaline Phosphatase 64 U/L (39-117); Anion Gap 11 (12-20); Aspartate Amino Transferase 18 U/L (5-31); Bilirubin Total 0.3 mg/dL (0.0-1.0); Blood Urea Nitrogen 20 mg/dL (9-16); Calcium 9.6 mg/dL (8.4-10.2); Carbon Dioxide 28 mmol/L (22-29); Chloride 105 mmol/L (96-108); Cholesterol 190 mg/dL (<200); Estimated Glomerular Filt Rate > 60; Glucose Fasting 121 mg/dL (60-99); HDL Cholesterol 55 mg/dL (>40); LDL Cholesterol Calculated 108 mg/dL (<100); Potassium 4.2 mmol/L (3.3-5.1); Sodium 140 mmol/L (135-145); Triglycerides 137 mg/dL (<150)
[2023-03-10 09:37] LABS: Free T4 (Free Thyroxine) 0.91 ng/dL (0.71-1.85); Thyroid Stimulating Hormone 2.52 uIU/mL (0.32-4.0)
== END 2023-03-10 08:16 | disposition home or self-care (01) ==
LOC: HO.LAB 08:15
PROVIDERS: PCP Internal Medicine; Visit Provider Internal Medicine Endocrinology, Diabetes & Metabolism
DX: Z00.00 Encounter for general adult medical examination without abnormal findings (principal); R79.89 Other specified abnormal findings of blood chemistry
CPT/HCPCS: 36415; 80053; 80061; 84439; 84443

== ENCOUNTER 2023-03-11 07:57 | Outpatient (AMB) | payer MEDICARE, SELFPAY ==
[2023-03-11 08:02] VITALS: BP 138/68; PULSE 66; BMI 32.3
--- NOTE | 2023-03-11 08:02 | A.OFFVIS_ITS ---
Intake Vital Signs 03/11/23 08:02 Height 5 ft 3 in Weight 182 lb 8.684 oz BMI 32.3 BP 138/68 Blood Pressure Location Lt brachial Position Sitting Pulse 66 Pulse Source Pulse Oximeter Intake Visit Reasons: f/u hypothyroidism and thyroid nodule-CONFIRMED Intake Note: Patient presents today to follow up on Hypothyroidism and Thyroid Nodule. Patient was last seen on 03/12/2022 and last US Thyroid was done on 04/09/2022 at [facility] [place]. Deposition Operator Required: No Accompanied by: Self / Same As Patient Allergies codeine [CODEINE] Allergy (Intermediate, Verified 03/11/23 08:09) TACHYCARDIA phentermine Allergy (Intermediate, Verified 03/11/23 08:09) Palpitations Medication List - Last Reconciled 03/11/23 by Cristopher Grajeda MD acetaminophen ER (Tylenol Arthritis Pain) 650 mg PO Q12H PRN mirtazapine 15 mg PO BEDTIME 90 days pantoprazole 40 mg PO DAILY 90 days HPI HPI Comments History of Present Illness Details 72 YO F with who is seen in consultatio n for multinodular thyroid with subcentimeter nodule and hypothyroidism at the request of PCP. Was initially diagnosed with nodular thyroid i with thyroid US revealing : [address]: Preethi Hsu MD Ordering Physician: Preethi Soto MD Date of Service: 01/17/21 Procedure(s): US thyroid Accession Number(s): [id number] cc: Preethi Soto MD~ EXAMINATION: US THYROID CLINICAL INFORMATION: Goiter COMPARISON: None TECHNIQUE: Linear transducer reyes-scale and color Doppler examination with attention to the region of the thyroid. FINDINGS: ? SIZE: Measurements of the thyroid lobes and nodules are given in sagittal, anteroposterior and transverse dimensions respectively. Right Thyroid Lobe: 4.6 x 1.3 x 1.7 cm, volume 5.4 mL. Parenchyma: The gland echotexture is homogeneous. Thyroid vascularity is normal. Left Thyroid Lobe: 3.2 x 1.4 x 1.2 cm, volume 2.9 mL. Parenchyma: The gland echotexture is homogeneous. Thyroid vascularity is normal. Isthmus: 0.22 cm in maximum AP dimension. Estimated total number of nodules greater than or equal to 1 cm: 0. Engraving Operator nodules are described as follows: 1. Location: Right mid. ?? ? Size: 0.4 x 0.4 x 0.5 cm, volume 0.04 mL. ?? ? Nodule characteristics: ?? ? Composition: Solid/almost completely solid (2). ?? ? Echogenicity: Hypoechoic (2). ?? ? Shape: Not taller than wide (0). ?? ? Margins: Smooth (0). ?? ? Echogenic Foci: Punctate echogenic foci (3). ?? ? ACR TI-RADS total points: 7 ?? ? ACR TI-RADS category: 5 NODES: No lymphadenopathy is seen in the tissue surrounding the thyroid gland. US/US thyroid IMPRESSION: Solitary 0.5 cm nodule in the right lobe. This is a category 5 nodule. Annual follow-up for 5 years is recommended.. Currently off levothyroxine for 1 mos . Admits to no hypothyroid sx Currently denies any dysphagia or hoarseness of voice. Denies sensation of swelling in the neck or difficulty breathing while lying flat. Denies any tenderness in the neck. Denies any palpitations, tremors, weight loss, frequent bowel movements. Denies any ocular complaints, blurred or double vision. [Denies] hair loss, has dry skin,no heat or cold intolerance, noweight gain, confusion. Denies any history of head or neck irradiation. Denies any family history of thyroid cancer. Has family hx of thyroid dx not Had biopsy of nodules in the past. Thyroid US: see above Labs: [facility] Medical History Anxiety Elevated TSH GERD (gastroesophageal reflux disease) Goiter History of DVT (deep vein thrombosis) Hypothyroidism Impaired glucose tolerance Mild major depression, single episode Mixed hyperlipidemia Obese Pre-op evaluation Primary osteoarthritis of left knee Sarcoid Thyroid nodule Vertigo Surgical History History of section History of tubal ligation Hx of colonoscopy Family History Father Renal cancer Mother No problems noted. Brother Myocardial infarction Social History Housing: House Alcohol intake: current Alcohol intake frequency: a few times a month Alcohol type: wine Patient Tobacco Use Status: Never used Tobacco e-Cigarette/Vaping Use: Never Used Second Hand Smoke Exposure: No service: No Current occupational status: retired Cognitive needs: No Hearing needs: No Vision needs: No Physical Exam HEENT reveals absence of lid lag , stare or proptosis or eyebrow loss. Thyroid gland measure 15 gms . No nodules or tenderness palpated. There is no cervical adenopathy palpated. Lungs CTA. Heart S1, S2 Reg R/R -M/R/G. Abdominal exam benign. Skin exam reveals absence of dryness or thyroid dermopathy or vitiligo. Nail exam reveals absence of thyroid acropachy or oncholysis. Neurologic exam reveals 2+ reflexes . Muscle Strength is 5/5 proximally. There are no tremors in upper extremities. Assessment & Plan Assessment & Plan (1) Thyroid nodule: Code(s): E04.1 - Nontoxic single thyroid nodule Plan: This 70-year-old female with a history of right subcentimeter nodule. Currently off mcg levothyroxine. She appears clinically and biochemically euthyroid. Recent thyroid ultrasound shows stability in the size of the nodule. Antibodies for Faviola's were negative Plan is to continue off levothyroxine. At this point, patient returned to the care of her primary care provider and return back to endocrinology as needed. Perhaps, TSH can be checked every 6 months to 1 year's time the patient's primary care unless patient experiences symptoms of hypothyroidism A repeat thyroid ultrasound should be obtained with patient's primary care provider in about 2-3 years time if there is any significant change in the size or or characteristics of the nodule, patient returned back to ended (2) Hypothyroidism: Code(s): E03.9 - Hypothyroidism, unspecified Plan: History of mild thyroid failure currently being treated with 25 mcg levothyroxine. She appears to be under replaced with elevated TSH. Plan is to as per management of thyroid nodule Coding Level of Care Code Est Pt Level 3 (62701) Diagnoses Thyroid nodule E04.1 Hypothyroidism E03.9
== END 2023-03-11 08:16 | disposition home or self-care (01) ==
PROVIDERS: PCP Internal Medicine; Visit Provider Internal Medicine Endocrinology, Diabetes & Metabolism
DX: E04.1 Nontoxic single thyroid nodule (principal); E03.9 Hypothyroidism, unspecified
CPT/HCPCS: 99213

== ENCOUNTER → 2023-03-11 07:57 | Outpatient (BNVA) | payer MEDICARE, SELFPAY | PROVIDERS: Visit Provider Internal Medicine Endocrinology, Diabetes & Metabolism | DX: E04.1 Nontoxic single thyroid nodule (principal); E03.9 Hypothyroidism, unspecified | CPT/HCPCS: 99212 ==

== ENCOUNTER 2023-04-16 13:41 | Outpatient (AMB) | payer MEDICARE, SELFPAY ==
[2023-04-16 13:42] VITALS: BP 124/76; PULSE 90; TEMP 36.1; O2SAT 96; BMI 31.9
--- NOTE | 2023-04-16 13:42 | MHC.OFFVIS ---
Intake Vital Signs 04/16/23 13:42 Height 5 ft 3 in Weight 180 lb BMI 31.9 BP 124/76 Blood Pressure Location Rt brachial Position Sitting Pulse 90 Pulse Source Pulse Oximeter Temp 97 F Temp Source Skin Pulse Oximetry (%) 96 Oxygen Delivery Method Room Air Intake Visit Reasons: OA/Sarcoid Intake Note: Patient last seen 06/04/22 by [facility], presents today for follow up. c/o gayathri hand numbness and tingling at night, feet numbness x 2 mo Progressive Care Unit Registered Nurse Required: No Accompanied by: Self / Same As Patient Allergies codeine [CODEINE] Allergy (Intermediate, Verified 04/16/23 13:47) TACHYCARDIA phentermine Allergy (Intermediate, Verified 04/16/23 13:47) Palpitations HPI HPI Comments History of Present Illness Details 71yoF presents for follow-up of osteoarthritis. Last visit May 2022. She doing well today. She continues to manage her symptoms with Tylenol and Voltaren gel. Prior Visit 05/2022 Patient has a history of biopsy-proven sarcoid which presented as Manjula syndrome in 2013. She was treated with prednisone and her symptoms resolved. Per most recent pulmonary note from April 2022 her sarcoid symptoms have remained inactive. Patient denies any new concerns today. She reports intermittent generalized joint pain in her shoulders and knees. She reports increased pain in her shoulders that lasts for a few days to weeks, she attributes this to positioning in bed at night. She states her left shoulder has been more bothersome recently. She admits to intermittent left knee pain that is worse after prolonged sitting. Previously followed with Orthopedics and has not required any injections or recent orthopedic follow-up. States she walks frequently and stays active. She manages her symptoms with Tylenol and Voltaren gel. She has a history of DVT in the right leg in 2013. She was anticoagulated for a year. Currently on baby aspirin no recurrent episodes of DVT. She follows with Hematology every 6 months. Currently on levothyroxine for hypothyroidism. [facility] Medical History (Updated 04/16/23 @ 16:07 by JOSSE Bagley-MAC) History of sarcoidosis Pre-op evaluation Thyroid nodule Hypothyroidism Vertigo GERD (gastroesophageal reflux disease) Mild major depression, single episode Goiter Elevated TSH Obese Impaired glucose tolerance Mixed hyperlipidemia Sarcoid Primary osteoarthritis of left knee History of DVT (deep vein thrombosis) Anxiety Surgical History Hx of colonoscopy History of section History of tubal ligation Family History Father Renal cancer Mother No problems noted. Brother Myocardial infarction Social History Housing: House Alcohol intake: current Alcohol intake frequency: a few times a month Alcohol type: wine Patient Tobacco Use Status: Never used Tobacco e-Cigarette/Vaping Use: Never Used Second Hand Smoke Exposure: No service: No Current occupational status: retired Cognitive needs: No Hearing needs: No Vision needs: No Review of Systems Const All systems reviewed & are unremarkable except as noted in HPI and below Physical Exam Vital Signs: Last Vital Signs Temp 97 F 04/16/23 13:42 Pulse 90 04/16/23 13:42 BP 124/76 04/16/23 13:42 Pulse Ox 96 04/16/23 13:42 Oxygen Delivery Method Room Air 04/16/23 13:42 BMI result Body Mass Index 31.9 APPEARANCE: Patient in no acute distress, groomed nourished EYES: no redness, eyelids normal EARS: External ear normal, canal clear and tympanic membrane normal. NOSE/SINUS: Airflow through both nares, no nasal discharge, no bleeding THROAT: Oral mucosa moist, no ulcerations NECK: No thyromegaly or masses, no adenopathy, trachea midline. HEART: Regular rhythm, S1-S2 heard, no murmurs, rubs or gallops. LUNG: Clear to auscultation, respiratory rate regular and nonlabored. ABD: Normal bowel sounds, abdomen soft, nontender. EXTREMITIES: No edema, no calf tenderness, normal peripheral pulses. NEURO: Oriented and alert x3. No focal weakness. Gait normal. SKIN: No inflammatory or neoplastic lesions. Normal color and turgor JOINT EXAM: Cervical Spine:? Full range of motion without pain; no tenderness. Thoracic Spine:? No scoliosis.? No tenderness on palpation. Lumbar Spine:? Alignment normal.? Full range of motion without pain, no tenderness. Hands:? Normal pain-free range of motion without tenderness, swelling, increased warmth or erythema. Able to make a full fist and has a good wellness manager strength. Wrists:? Normal pain-free range of motion without swelling, increased warmth or erythema. mild tenderness at right ulnar styloid soft cyst Elbows: Normal pain-free range of motion without tenderness, swelling, increased warmth or erythema. Shoulders:?LEFT: Full range of motion without pain. Slight tenderness to palpation over the AC joint, posterior aspect of the shoulder and anterior aspect of the shoulder. No weakness, swelling, increased warmth or erythema. RIGHT: Full range of motion without pain. No tenderness, weakness, swelling, increased warmth or erythema. Hips:? Full range of motion without pain. Hip bursa: No tenderness. Knees:?? LEFT: Normal pain-free range of motion without swelling, increased warmth or erythema.? Slight tenderness to palpation of the medial joint line. There is no effusion or crepitation RIGHT: Normal pain-free range of motion without swelling, increased warmth or erythema.? Slight tenderness to palpation of the medial joint line. There is no effusion or crepitation Ankles:? Normal pain-free range of motion without tenderness, swelling, increased warmth or erythema. Feet: Normal pain-free range of motion without tenderness, swelling, increased warmth or erythema. mild tenderness at dorsum of right foot near ankle Assessment & Plan Assessment & Plan (1) Primary osteoarthritis of left knee: Code(s): M17.12 - Unilateral primary osteoarthritis, left knee Plan: Pain is stable at this time. Continue Tylenol and topical Voltaren gel. (2) Left shoulder pain: Code(s): M25.512 - Pain in left shoulder Qualifiers: Chronicity: chronic Qualified Code(s): M25.512 - Pain in left shoulder; G89.29 - Other chronic pain Plan: Overall pain is stable. Patient would like to continue to monitor. (3) History of sarcoidosis: Code(s): Z86.2 - Personal history of diseases of the blood and blood-forming organs and certain disorders involving the immune mechanism Plan Patient with a history of 2014 sarcoidosis that was biopsy proven and initially presented as Manjula syndrome.? She was treated with prednisone and her symptoms resolved.? She has history of osteoarthritis in left knee. Overall her pain is stable. She has some slight tenderness along the medial joint line of both knees. Her symptoms do not prevent her from walking frequently. On exam she has tenderness to palpation of the left shoulder, her range of motion is intact. She would like to continue to monitor her knee and shoulder pain. Continue Tylenol and topical Voltaren gel. Advised patient to contact clinic with any new or worsening symptoms. Follow-up 1 year or sooner if needed. Of note recent labs with elevated calcium resolved. 20 minutes spent reviewing chart, evaluating patient and documenting. Last Sarcoid episode was 2013 on medication for one year. Has not had a recurrence since and is monitored by [facility]. Next PULM appointment is May 2023. There is an existing order for chest xray that [facility] ordered. Patient will complete before appointment Coding Level of Care Code Est Pt Level 3 (53153) Diagnoses Primary osteoarthritis of left knee M17.12 Chronic left shoulder pain M25.512; G89.29 Chronicity: chronic History of sarcoidosis Z86.2
== END 2023-04-16 14:13 | disposition home or self-care (01) ==
PROVIDERS: PCP Internal Medicine; Visit Provider Nurse Practitioner Family
DX: M17.12 Unilateral primary osteoarthritis, left knee (principal); M25.512 Pain in left shoulder; G89.29 Other chronic pain; Z86.2 Personal history of diseases of the blood and blood-forming organs and certain disorders involving the immune mechanism
CPT/HCPCS: 99213

== ENCOUNTER → 2023-04-16 13:41 | Outpatient (BNVA) | payer MEDICARE, SELFPAY | PROVIDERS: PCP Internal Medicine; Visit Provider Nurse Practitioner Family | DX: M17.12 Unilateral primary osteoarthritis, left knee (principal); G89.29 Other chronic pain; M25.512 Pain in left shoulder; Z86.2 Personal history of diseases of the blood and blood-forming organs and certain disorders involving the immune mechanism | CPT/HCPCS: 99212 ==

== ENCOUNTER 2023-04-23 07:53 | Outpatient (AMB) | payer MEDICARE, SELFPAY ==
--- NOTE | 2023-04-23 07:56 | MHC.PC.OV ---
Vital Signs 04/23/23 07:57 Height 5 ft 3 in Weight 177 lb BMI 31.4 BP 126/70 Blood Pressure Location Lt brachial Position Sitting Intake Visit Reasons: thyroid, sarcoidosis Intake Note: Patient here for a follow up Thyroid, Sarcoidosis Unarmed Security Officer Required: No Accompanied by: Self / Same As Patient Allergies codeine [CODEINE] Allergy (Intermediate, Verified 04/23/23 08:08) TACHYCARDIA phentermine Allergy (Intermediate, Verified 04/23/23 08:08) Palpitations Medication List - Last Reconciled 04/23/23 by Preethi Hsu MD acetaminophen ER (Tylenol Arthritis Pain) 650 mg PO Q12H PRN mirtazapine 15 mg PO BEDTIME 90 days pantoprazole 40 mg PO DAILY 90 days Tobacco use date assessed: 04/23/23 Fall risk assessment: No Falls in past year Last assessed Fall Risk: 04/23/23 Dental Screening Dental Screen Date: 04/23/23 Did you have a dental visit in the last 12 months?: No Did you have a dental problem in the last 6 months where you did not have access to dental care?: No Was dental information given to patient?: Patient has dentist HPI HPI Comments History of Present Illness Details This is a 72-year-old female with impaired glucose tolerance, sarcoidosis, mild major depression and GERD that comes today for follow-up on her conditions. Her fasting blood glucose is 121 and she denies any polyuria, polydipsia and unintentional weight loss. Fasting blood glucose will be repeated for her physical exam in November. Has sarcoidosis and chest x-ray still pending. Follows with pulmonology for that matter. Depression stable with mirtazapine. GERD stable with PPIs as needed. No chest pain or shortness of breath. Complains of nasal congestion and cold symptoms that started 5 days ago. [facility] Medical History (Updated 04/23/23 @ 08:34 by Preethi Hsu MD) Right leg DVT History of sarcoidosis Pre-op evaluation Thyroid nodule Hypothyroidism Vertigo GERD (gastroesophageal reflux disease) Mild major depression, single episode Goiter Elevated TSH Obese Impaired glucose tolerance Mixed hyperlipidemia Sarcoid Primary osteoarthritis of left knee History of DVT (deep vein thrombosis) Anxiety Surgical History Hx of colonoscopy History of section History of tubal ligation Family History Father Renal cancer Mother No problems noted. Brother Myocardial infarction Social History Housing: House Alcohol intake: current Alcohol intake frequency: a few times a month Alcohol type: wine Patient Tobacco Use Status: Never used Tobacco e-Cigarette/Vaping Use: Never Used Second Hand Smoke Exposure: No service: No Current occupational status: retired Cognitive needs: No Hearing needs: No Vision needs: No Questionnaire PHQ-9 Over the last 2 weeks, how often have you been bothered by any of the following problems? 1. Little interest or pleasure in doing things: not at all 2. Feeling down, depressed, or hopeless: not at all 3. Trouble falling or staying asleep, or sleeping too much: not at all 4. Feeling tired or having little energy: not at all 5. Poor appetite or overeating: not at all 6. Feeling bad about yourself - or that you are a failure or have let yourself or your family down: not at all 7. Trouble concentrating on things, such as reading the newspaper or watching television: not at all 8. Moving or speaking so slowly that other people could have noticed. Or the opposite - being so fidgety or restless that you have been moving around a lot more than usual: not at all 9. Thoughts that you would be better off or of hurting yourself in some way: not at all Total score: 0 Depression Screening Interpretation: Negative Depression Screening Done: Yes 30321 - PHQ-9 Billing: Yes Source: Developed by Drs. Cristopher Donnelly, Olga Lidia Velasco, Esteban Don and colleagues, with an educational jace from [employer] Thrive Questionnaire Date Thrive assessed: 04/23/23 I am a: Patient What is your living situation today?: I have a steady place to live Within the past 12 months, did the food you bought not last and you didn't have the money to get more?: Never true Within the past 12 months, did you worry whether your food would run out before you got money to buy more?: Never true Do you have trouble paying for medicines?: No Do you have trouble getting transportation to medical appointments?: No Do you have trouble paying your heating and electricity bill?: No Do you have trouble taking care of your child, family member or friend?: No Do you have trouble with day-to-day activities such as bathing, preparing meals, shopping, managing finances, etc.?: No Are you currently unemployed and looking for a job?: No Are you interested in more education?: No Please select the resources that you would like help with: None Currently or been in a relationship where the following occur: no concerns reported THRIVE Score: 0 AUDIT C Alcohol Use Questionnaire (AUDIT-C) 1. How often do you have a drink containing alcohol?: Monthly or less 2. How many drinks containing alcohol do you have on a typical day when you are drinking?: 1 or 2 3. How often do you have six or more drinks on one occasion?: Never Total Score: 1 Score Reviewed/Action Taken: No TR-7 AMB Questionnaire TR-7 Date TR - 7 assessed: 04/23/23 Feeling nervous, anxious, or on edge: 0 = Not at all Not being able to stop or control worryin = Not at all Worrying too much about different things: 0 = Not at all Trouble relaxin = Not at all Being so restless that it is hard to sit still: 0 = Not at all Becoming easily annoyed or irritable: 0 = Not at all Feeling afraid as if something awful might happen: 0 = Not at all Total TR-7 score (0-4 normal; 5-9 mild; 10-14 moderate; 15-21 severe): 0 Source: Developed by Drs. Cristopher Donnelly, Olga Lidia Velasco, Esteban Don and colleagues, with an educational jace from [employer]). TR-7 Assessment Billing TR-7 Assessment Tool: TR-7 Assessment 46016 Review of Systems Const All systems reviewed & are unremarkable except as noted in HPI and below Eyes Reports no additional complaints, Denies change in vision and Denies other visual disturbances Card Denies chest pain at rest, Denies chest pain with activity, Denies edema, Denies irregular heart rhythm, Denies claudication, Denies dyspnea, Denies dyspnea on exertion, Denies orthopnea, Denies paroxysmal nocturnal dyspnea and Denies slow heart rate Resp Denies cough, Denies dyspnea and Denies dyspnea on exertion GI Denies abdominal pain, Denies change in bowel habits, Denies excessive flatus, Denies nausea and Denies vomiting Denies urinary incontinence, Denies urinary hesitancy and Denies urinary urgency Musc Denies abnormal gait, Denies atrophy, Denies deformity and Denies limited range of motion Skin/Breast Denies bleeding lesions, Denies changing lesions and Denies rash Neuro Denies abnormal gait, Denies behavioral changes and Denies lack of coordination Psych Denies behavioral changes Physical exam (Primary Care) Vital Signs: Last Vital Signs BP 126/70 04/23/23 07:57 BMI result Body Mass Index 31.4 Tobacco/Smoking Status: Tobacco use Status Tobacco use date assessed 04/23/23 04/23/23 08:01 Patient Tobacco Use Status Never used Tobacco 04/23/23 08:01 e-Cigarette/Vaping Use Never Used 04/23/23 08:01 PHQ-9: PHQ-9 Score PHQ-9: Total score 0 04/23/23 08:17 Depression Screening Interpretation: Negative Thrive Assessment: Date of Thrive Assessment Date Thrive assessed 04/23/23 04/23/23 08:01 Currently or been in a relationship where the following occur: no concerns reported Eyes General: appearance normal, both eyes and all related structures Eyelids: Yes eyelids normal Conjunctivae: conjunctivae normal Neck Neck: Yes normal visual inspection and Yes supple Resp Effort & Inspection: normal respiratory effort Auscultation: clear to auscultation bilaterally Cardio Jugular venous distension: no JVD Rate: regular rate Rhythm: regular rhythm Heart sounds: S1 normal heart sound present and S2 normal heart sound present Extrem General: Yes full ROM Assessment and Plan Assessment & Plan (1) Mild major depression, single episode: Code(s): F32.0 - Major depressive disorder, single episode, mild Plan: Continue mirtazapine. (2) GERD (gastroesophageal reflux disease): Code(s): K21.9 - Gastro-esophageal reflux disease without esophagitis Plan: Continue PPIs. (3) Sarcoid: Comment: HISTORY OF PULMONARY SARCOIDOSIS BUT HAS REMAINED TOTALLY IN ACTIVE, NO ACTIVE SYMPTOMS AT PRESENT. PATIENT ADVISED THAT SHE CAN COME BACK ONCE A YEAR FOR A CHECKUP AND ALSO P.R.N.. Code(s): D86.9 - Sarcoidosis, unspecified Plan: Chest x-ray pending. (4) Impaired glucose tolerance: Code(s): R73.02 - Impaired glucose tolerance (oral) Plan: Repeat fasting blood glucose. Advise low-carbohydrate diet. Orders: Orders SARS-CoV2/FLU/RSV Today R09.89 - Other specified symptoms and signs involving the circulatory and respiratory systems Free T4 (Free Thyroxine) 7 Months E03.9 - Hypothyroidism, unspecified Comprehensive [place]. Panel Fast 7 Months R73.02 - Impaired glucose tolerance (oral) Thyroid Stimulating Hormone 7 Months E03.9 - Hypothyroidism, unspecified Lipid Panel 7 Months E78.2 - Mixed hyperlipidemia Coding Level of Care Code Est Pt Level 4 (18947) Diagnoses Mild major depression, single episode F32.0 GERD (gastroesophageal reflux disease) K21.9 Sarcoid D86.9 Impaired glucose tolerance R73.02 Additional Codes TR-7 Assessment Billing - TR-7 Assessment Tool: TR-7 Assessment 15546 ([id number]) Time Spent (min) 23
[2023-04-23 07:57] VITALS: BP 126/70; BMI 31.4
== END 2023-04-23 08:20 | disposition home or self-care (01) ==
PROVIDERS: PCP Internal Medicine; Visit Provider Internal Medicine
DX: K21.9 Gastro-esophageal reflux disease without esophagitis (principal); F32.0 Major depressive disorder, single episode, mild; D86.9 Sarcoidosis, unspecified; R73.02 Impaired glucose tolerance (oral)
CPT/HCPCS: 99214

== ENCOUNTER 2023-04-23 08:25 | Outpatient (REF) | payer MEDICARE, SELFPAY ==
--- NOTE | ~2023-04-23 | XR_ITS ---
EXAMINATION: XR CHEST CLINICAL INFORMATION: Sarcoidosis COMPARISON: Previous chest x-ray most recent 2019 TECHNIQUE: 2 views of the chest were obtained. FINDINGS: The cardiac and mediastinal contours are stable. The lungs are clear. No pulmonary nodule appreciated by x-ray. No pleural effusion or pneumothorax. Bony structures are unremarkable. XR/XR chest 2V IMPRESSION: Unremarkable examination.
[2023-04-23 09:45] LABS: Influenza A PCR NEGATIVE (Negative); Influenza B PCR NEGATIVE (Negative); Resp Syncy Virus RNA Qual PCR NEGATIVE (Negative); SARS COV2 PCR INHOUSE POSITIVE (Negative)
== END 2023-04-23 08:26 | disposition home or self-care (01) ==
LOC: HO.XRAY 08:25
PROVIDERS: PCP Internal Medicine; Visit Provider Internal Medicine
DX: Z11.52 Encounter for screening for COVID-19 (principal); Z20.822 Contact with and (suspected) exposure to COVID-19; R09.89 Other specified symptoms and signs involving the circulatory and respiratory systems; D86.9 Sarcoidosis, unspecified
CPT/HCPCS: 0241U; 71046

== ENCOUNTER 2023-05-20 13:59 | Outpatient (AMB) | payer MEDICARE, SELFPAY ==
[2023-05-20 14:22] VITALS: BP 122/76; PULSE 66; RESP 18; O2SAT 97; BMI 31.1
--- NOTE | 2023-05-20 14:22 | MHC.OFFVIS ---
Intake Vital Signs 05/20/23 14:22 Height 5 ft 3 in Weight 175 lb 5 oz BMI 31.1 BP 122/76 Blood Pressure Location Lt brachial Position Sitting Respiration 18 Pulse 66 Pulse Source Pulse Oximeter Pulse Oximetry (%) 97 Oxygen Delivery Method Room Air Intake Visit Reasons: Sarcodoisis Allergies codeine [CODEINE] Allergy (Intermediate, Verified 05/20/23 14:32) TACHYCARDIA phentermine Allergy (Intermediate, Verified 05/20/23 14:32) Palpitations Medication List - Last Reconciled 05/20/23 by Franklyn Alcala MD acetaminophen ER (Tylenol Arthritis Pain) 650 mg PO Q12H PRN mirtazapine 15 mg PO BEDTIME 90 days pantoprazole 40 mg PO DAILY 90 days Do you need a note to return to daycare/school/sports/work: No HPI Sarcodoisis HPI Details Kell is 72 years old very pleasant female who has diagnosis of pulmonary sarcoidosis. At present she has no symptoms of cough wheezing or shortness of breath. She has not noticed any lymphadenopathy in axillae, or groins . She is not on any medication. She remains very active. Has try to lose some weight , and is down by a few lb compared to last year. [facility] Medical History Right leg DVT History of sarcoidosis Pre-op evaluation Thyroid nodule Hypothyroidism Vertigo GERD (gastroesophageal reflux disease) Mild major depression, single episode Goiter Elevated TSH Obese Impaired glucose tolerance Mixed hyperlipidemia Sarcoid Primary osteoarthritis of left knee History of DVT (deep vein thrombosis) Anxiety Surgical History Hx of colonoscopy History of section History of tubal ligation Family History Father Renal cancer Mother No problems noted. Brother Myocardial infarction Social History Housing: House Alcohol intake: current Alcohol intake frequency: a few times a month Alcohol type: wine Patient Tobacco Use Status: Never used Tobacco e-Cigarette/Vaping Use: Never Used Second Hand Smoke Exposure: No service: No Current occupational status: retired Cognitive needs: No Hearing needs: No Vision needs: No Review of Systems Const All systems reviewed & are unremarkable except as noted in HPI and below Eyes Reports no additional complaints ENT Reports no additional complaints Card Denies chest pain, Denies irregular heart rhythm, Denies leg edema and Denies dyspnea on exertion Resp Reports cough (Mild intermittent) and Denies dyspnea on exertion GI Reports heartburn (GERD symptoms controlled) Reports no additional complaints Musc Reports no additional complaints Skin/Breast Reports system reviewed and no additional complaints, except as documented Neuro Reports no additional complaints Psych Reports depression (Mild controlled) Endo Reports no additional complaints Sukh/Lymph Reports no additional complaints Aller/Immun Reports no additional complaints Physical Exam Vital Signs: Last Vital Signs Pulse 66 05/20/23 14:22 Resp 18 05/20/23 14:22 BP 122/76 05/20/23 14:22 Pulse Ox 97 05/20/23 14:22 Oxygen Delivery Method Room Air 05/20/23 14:22 BMI result Body Mass Index 31.1 Const General: healthy appearing (Except for being overweight), comfortable, no acute distress, alert and awake Orientation/consciousness: patient oriented x3 HEENT Head: Yes normal to inspection General nose exam: No nasal polyps present and No nasal discharge present Face and sinus: Yes sinuses nontender Mouth: oropharynx normal Throat: Yes posterior oropharynx normal Eyes General: appearance normal, both eyes and all related structures Neck Neck: Yes normal visual inspection, Yes no lymphadenopathy, Yes trachea midline and Yes no JVD Thyroid: Thyroid normal Chest Chest palpation & inspection: normal inspection of the chest, normal palpation of entire chest wall and No Pacemaker present Resp Effort & Inspection: normal respiratory effort and no cough Auscultation: clear to auscultation bilaterally, no crackles and no wheezes Cardio Palpation: normal PMI Rate: regular rate Rhythm: regular rhythm Heart sounds: no gallops and no murmurs Peripheral pulses: Peripheral pulses 2+ throughout GI Palpation (GI): Soft to palpation, nontender, No hepatosplenomegaly present and no masses Auscultation: normal bowel sounds Back/Spine/Pelvis Thoracic/Lumbar Spine: thoracic and lumbar spine normal to inspection Skin General skin exam: no rashes or lesions noted Neuro General: patient oriented x3 and no focal motor deficits Cranial nerves: Yes CN's II-XII intact bilaterally Extrem General: Yes normal to inspection, Yes no clubbing, cyanosis or edema and Yes no calf tenderness Psych Appearance: grossly normal and well kempt Speech and movement: Normal speech and movement present Results Reviewed Results Reviewed: Checks x-ray last year in April 2022, was essentially unremarkable. No mass or mediastinal lymphadenopathy was noted. Assessment & Plan Assessment & Plan (1) Sarcoid: Comment: HISTORY OF PULMONARY SARCOIDOSIS BUT HAS REMAINED TOTALLY ASYMPTOMATIC . NO ACTIVE SYMPTOMS AT PRESENT. Code(s): D86.9 - Sarcoidosis, unspecified Plan: PATIENT ADVISED THAT SHE CAN COME BACK ONCE A YEAR FOR A CHECKUP AND ALSO P.R.N.. Coding Level of Care Code Est Pt Level 3 (09143) Diagnoses Sarcoid D86.9
== END 2023-05-20 14:32 | disposition home or self-care (01) ==
PROVIDERS: PCP Internal Medicine; Visit Provider Internal Medicine
DX: D86.9 Sarcoidosis, unspecified (principal)
CPT/HCPCS: 99213

== ENCOUNTER → 2023-05-20 13:59 | Outpatient (BNVA) | payer MEDICARE, SELFPAY | PROVIDERS: PCP Internal Medicine; Visit Provider Internal Medicine | DX: D86.9 Sarcoidosis, unspecified (principal) | CPT/HCPCS: 99212 ==

== ENCOUNTER 2023-06-30 10:09 | Outpatient (AMB) | payer MEDICARE, SELFPAY ==
--- NOTE | 2023-06-30 10:10 | MHC.PC.OV ---
Vital Signs 06/30/23 10:11 Height 5 ft 3 in Weight 176 lb BMI 31.2 BP 132/80 Blood Pressure Location Lt brachial Position Sitting Intake Visit Reasons: cold symptoms Intake Note: Patient here c/o cold symptoms Flat Machine Cutter Required: No Accompanied by: Self / Same As Patient Allergies codeine [CODEINE] Allergy (Intermediate, Verified 06/30/23 10:17) TACHYCARDIA phentermine Allergy (Intermediate, Verified 06/30/23 10:17) Palpitations Medication List - Last Reconciled 06/30/23 by Preethi Hsu MD acetaminophen ER (Tylenol Arthritis Pain) 650 mg PO Q12H PRN mirtazapine 15 mg PO BEDTIME 90 days pantoprazole 40 mg PO DAILY 90 days Tobacco use date assessed: 04/23/23 Fall risk assessment: No Falls in past year Last assessed Fall Risk: 06/30/23 Dental Screening Dental Screen Date: 04/23/23 HPI HPI Comments History of Present Illness Details This is a 72-year-old female with mild major depression that comes today complaining of sore throat, nasal congestion and cough that started 2 days ago. She also had fever, chills and body aches associated with this. She has sick contacts in her household which were with the same symptoms few days before her and now they are recovering well. Was advised to get cepacol [id number] for her sore throat. Strep test negative in office. Will order COVID, flu and RSV test. Depression stable with mirtazapine. [facility] Medical History Right leg DVT History of sarcoidosis Pre-op evaluation Thyroid nodule Hypothyroidism Vertigo GERD (gastroesophageal reflux disease) Mild major depression, single episode Goiter Elevated TSH Obese Impaired glucose tolerance Mixed hyperlipidemia Sarcoid Primary osteoarthritis of left knee History of DVT (deep vein thrombosis) Anxiety Surgical History Hx of colonoscopy History of section History of tubal ligation Family History Father Renal cancer Mother No problems noted. Brother Myocardial infarction Social History Housing: House Alcohol intake: current Alcohol intake frequency: a few times a month Alcohol type: wine Patient Tobacco Use Status: Never used Tobacco e-Cigarette/Vaping Use: Never Used Second Hand Smoke Exposure: No service: No Current occupational status: retired Cognitive needs: No Hearing needs: No Vision needs: No Questionnaire Thrive Questionnaire Date Thrive assessed: 04/23/23 TR-7 AMB Questionnaire TR-7 Date TR - 7 assessed: 04/23/23 Source: Developed by Drs. Cristopher Donnelly, Olga Lidia Velasco, Esteban Don and colleagues, with an educational jace from [employer]. Review of Systems Const All systems reviewed & are unremarkable except as noted in HPI and below Reports body aches, Reports chills and Reports fatigue ENT Reports nasal congestion and Reports sore throat Card Denies chest pain at rest, Denies chest pain with activity, Denies edema, Denies irregular heart rhythm, Denies claudication, Denies dyspnea, Denies dyspnea on exertion, Denies orthopnea, Denies paroxysmal nocturnal dyspnea and Denies slow heart rate Resp Reports cough, Denies dyspnea and Denies dyspnea on exertion Musc Reports myalgias Skin/Breast Denies bleeding lesions, Denies changing lesions and Denies rash Endo Reports fatigue Physical exam (Primary Care) Vital Signs: Last Vital Signs BP 132/80 06/30/23 10:11 BMI result Body Mass Index 31.2 Tobacco/Smoking Status: Tobacco use Status Tobacco use date assessed 04/23/23 06/30/23 10:14 Patient Tobacco Use Status Never used Tobacco 06/30/23 10:14 e-Cigarette/Vaping Use Never Used 06/30/23 10:14 Thrive Assessment: Date of Thrive Assessment Date Thrive assessed 04/23/23 06/30/23 10:14 Const General: ill appearing acutely HENMT Head: Yes normal to inspection, Yes normocephalic and Yes atraumatic Ears: external ears normal General nose exam: Normal external nose present and Nasal discharge present Face and sinus: Yes sinuses nontender Mouth: lip normal Eyes General: appearance normal, both eyes and all related structures Eyelids: Yes eyelids normal Conjunctivae: conjunctivae normal Neck Neck: Yes normal visual inspection, Yes no lymphadenopathy and Yes supple Resp Effort & Inspection: normal respiratory effort Auscultation: clear to auscultation bilaterally Cardio Jugular venous distension: no JVD Rate: regular rate Rhythm: regular rhythm Heart sounds: S1 normal heart sound present and S2 normal heart sound present Results AMB Rapid Strep AMB Rapid Strep Negative Last Edit by JOE Oh on 06/30/23 10:33 Assessment and Plan Assessment & Plan (1) URI (upper respiratory infection): Code(s): J06.9 - Acute upper respiratory infection, unspecified Plan: Strep test negative. COVID, flu and RSV test ordered. Start Mucinex as needed for congestion. (2) Mild major depression, single episode: Code(s): F32.0 - Major depressive disorder, single episode, mild Plan: Continue mirtazapine. Orders: Orders SARS-CoV2/FLU/RSV Today R09.89 - Other specified symptoms and signs involving the circulatory and respiratory systems Coding Level of Care Code Est Pt Level 3 (87353) Diagnoses URI (upper respiratory infection) J06.9 Mild major depression, single episode F32.0 Time Spent (min) 19
[2023-06-30 10:11] VITALS: BP 132/80; BMI 31.2
== END 2023-06-30 10:38 | disposition home or self-care (01) ==
PROVIDERS: PCP Internal Medicine; Visit Provider Internal Medicine
DX: J06.9 Acute upper respiratory infection, unspecified (principal); F32.0 Major depressive disorder, single episode, mild; Z13.9 Encounter for screening, unspecified
CPT/HCPCS: 87880; 99213

== ENCOUNTER 2023-06-30 10:46 | Outpatient (REF) | payer MEDICARE, SELFPAY ==
[2023-06-30 11:37] LABS: Influenza A PCR POSITIVE (Negative); Influenza B PCR NEGATIVE (Negative); Resp Syncy Virus RNA Qual PCR NEGATIVE (Negative); SARS COV2 PCR INHOUSE NEGATIVE (Negative)
== END 2023-06-30 10:47 | disposition home or self-care (01) ==
LOC: HO.LAB 10:46
PROVIDERS: Visit Provider Internal Medicine
DX: R09.89 Other specified symptoms and signs involving the circulatory and respiratory systems (principal)
CPT/HCPCS: 0241U

== ENCOUNTER 2024-01-19 07:45 | Outpatient (AMB) | payer MEDICARE, SELFPAY ==
--- NOTE | 2024-01-19 07:46 | A.OFFVIS_ITS ---
Vital Signs 01/19/24 07:51 Height 5 ft 3 in Weight 188 lb 11.451 oz BMI 33.4 BP 124/70 Blood Pressure Location Rt brachial Position Sitting Respiration 18 Pulse 68 Pulse Source Pulse Oximeter Pulse Oximetry (%) 98 Oxygen Delivery Method Room Air Intake Visit Reasons: OA/Sarcoid/LM Intake Note: Patient presents for OA/Sarcoid. Allergies codeine [CODEINE] Allergy (Intermediate, Verified 01/19/24 07:49) TACHYCARDIA phentermine Allergy (Intermediate, Verified 01/19/24 07:49) Palpitations Medication List - Last Reconciled 01/19/24 by Carmel Morrison MD acetaminophen ER (Tylenol Arthritis Pain) 650 mg PO Q12H PRN mirtazapine 15 mg PO BEDTIME 90 days pantoprazole 40 mg PO DAILY HPI Comments Details: This is a 73-year-old female with history of sarcoidosis who presents for follow-up. She states that she has had left knee osteoarthritis for years and she refused left knee replacement. She states that over the last few months she has noticed tingling and burning sensation that travel up her left lower extremity into her hip with walking, sometimes associated with pain. It improves with sitting down and resting. This sensation is not particularly worse at night. She has not noticed any joint swelling, skin rashes, fevers, she denies any low back pain. Previous history: Patient has a history of biopsy-proven sarcoid which presented as Manjula syndrome in 2013. She was treated with prednisone and her symptoms resolved. Per most recent pulmonary note from April 2022 her sarcoid symptoms have remained inactive. Patient denies any new concerns today. She reports intermittent generalized joint pain in her shoulders and knees. She reports increased pain in her shoulders that lasts for a few days to weeks, she attributes this to positioning in bed at night. She states her left shoulder has been more bothersome recently. She admits to intermittent left knee pain that is worse after prolonged sitting. Previously followed with Orthopedics and has not required any injections or recent orthopedic follow-up. States she walks frequently and stays active. She manages her symptoms with Tylenol and Voltaren gel. She has a history of DVT in the right leg in 2013. She was anticoagulated for a year. Currently on baby aspirin no recurrent episodes of DVT. She follows with Hematology every 6 months. Currently on levothyroxine for hypothyroidism. [facility] Medical History Right leg DVT History of sarcoidosis Pre-op evaluation Thyroid nodule Hypothyroidism Vertigo GERD (gastroesophageal reflux disease) Mild major depression, single episode Goiter Elevated TSH Obese Impaired glucose tolerance Mixed hyperlipidemia Sarcoid Primary osteoarthritis of left knee History of DVT (deep vein thrombosis) Anxiety Surgical History Hx of colonoscopy History of section History of tubal ligation Family History Father Renal cancer Mother No problems noted. Brother Myocardial infarction Social History Housing: House Alcohol intake: current Alcohol intake frequency: a few times a month Alcohol type: wine Patient Tobacco Use Status: Never used Tobacco e-Cigarette/Vaping Use: Never Used Second Hand Smoke Exposure: No service: No Current occupational status: retired Cognitive needs: No Hearing needs: No Vision needs: No Review of Systems Musc Reports arthralgias, Reports numbness, Reports radiating pain into limb, Reports stiffness and Reports tingling Neuro Reports numbness and Reports tingling Physical Exam Vital Signs: Last Vital Signs Pulse 68 01/19/24 07:51 Resp 18 01/19/24 07:51 BP 124/70 01/19/24 07:51 Pulse Ox 98 01/19/24 07:51 Oxygen Delivery Method Room Air 01/19/24 07:51 BMI result Body Mass Index 33.4 Const General: cooperative, healthy appearing and comfortable Nutritional Appearance: obese Orientation/consciousness: patient oriented x3 Limitations: no limitations HEENT Head: Yes normocephalic and Yes atraumatic Mouth: moist mucous membranes Resp Effort & Inspection: normal respiratory effort and able to speak in complete sentences Auscultation: clear to auscultation bilaterally Cardio Rate: regular rate Rhythm: regular rhythm Skin General skin exam: no rashes or lesions noted Neuro General: patient oriented x3 Extrem Other: Osteoarthritic changes of both hands with no active synovitis Negative straight leg raise test bilaterally Left knee left knee valgus and crepitus with flexion and extension Light touch sensation is grossly normal both lower extremities No foot drop bilaterally Intact position sense bilaterally Dorsalis pedis pulse 2+ bilaterally Assessment & Plan Assessment & Plan (1) Left leg numbness: Code(s): R20.0 - Anesthesia of skin Category: Medical Plan: This is a 73-year-old female with history of sarcoidosis who presents for evaluation of left lower extremity tingling and numbness sensation . I will order bilateral lower extremity EMG/NCV. Advised patient to follow-up with neurologist Plan I spent 15 minutes reviewing patient's chart, evaluating patient, ordering diagnostic workup, counseling patient and documenting in the chart Orders: Orders NE electromyogram (EMG) Today R20.0 - Anesthesia of skin Coding Level of Care Code Est Pt Level 3 (03655) Diagnoses Left leg numbness R20.0
[2024-01-19 07:51] VITALS: BP 124/70; PULSE 68; RESP 18; O2SAT 98; BMI 33.4
== END 2024-01-19 08:07 | disposition home or self-care (01) ==
LOC: HO.RHE 07:45
PROVIDERS: PCP Internal Medicine; Visit Provider Student in an Organized Health Care Education/Training Program
DX: R20.0 Anesthesia of skin (principal)
CPT/HCPCS: 99213

== ENCOUNTER → 2024-01-19 07:45 | Outpatient (BNVA) | payer MEDICARE, SELFPAY | PROVIDERS: PCP Internal Medicine; Visit Provider Student in an Organized Health Care Education/Training Program | DX: R20.0 Anesthesia of skin (principal) | CPT/HCPCS: 99212 ==

== ENCOUNTER 2024-01-23 07:18 | Outpatient (REF) | payer MEDICARE, SELFPAY ==
--- NOTE | ~2024-01-23 | MM_ITS ---
EXAMINATION: MM SCREENING DIGITAL BREAST TOMOSYNTHESIS, BILATERAL CLINICAL INFORMATION: Screening. Asymptomatic. COMPARISON: Mammography: Comparison is made with available priors TECHNIQUE: Digital breast mammography with tomosynthesis is performed in both the craniocaudal and mediolateral oblique views along with computer-aided detection (CAD). FINDINGS: There are scattered areas of fibroglandular density (ACR BI-RADS breast composition Category b). There are no significant masses, abnormal calcifications, or other abnormalities. MM/MM tomosynthesis screening BI IMPRESSION: No mammographic evidence of malignancy. ASSESSMENT: BI-RADS BI-RADS 1 - Negative RECOMMENDATION: Routine annual mammography screening. 1 year F/U This examination should not preclude the clinical evaluation of a suspicious palpable abnormality. This patient's information was entered into a reminder system with a target due date for their next mammogram. Electronically signed by: Mandie Pappas DO 02/02/2024 12:44 PM YOSELYN
== END 2024-01-23 07:19 | disposition home or self-care (01) ==
LOC: HO.MAMMO 07:18
PROVIDERS: PCP Internal Medicine; Visit Provider Internal Medicine
DX: Z12.31 Encounter for screening mammogram for malignant neoplasm of breast (principal)
CPT/HCPCS: 77063; 77067

== ENCOUNTER → 2024-01-23 07:30 | Outpatient (BNV) | payer MEDICARE, SELFPAY | PROVIDERS: PCP Internal Medicine; Visit Provider Internal Medicine | DX: Z12.31 Encounter for screening mammogram for malignant neoplasm of breast (principal) | CPT/HCPCS: 77063; 77067 ==

== ENCOUNTER 2024-02-10 08:52 | Outpatient (REF) | payer MEDICARE, SELFPAY ==
--- NOTE | 2024-02-10 08:55 | EMG_ITS ---
Chief complaint: Pins/needles on left foot, denies back pain, history of sarcoidosis Reason for referral: Evaluate for neuropathy Referred by: Dr. Morrison Procedure done: Lower extremity NCS/EMG Precautions and/or limitations: Poor tolerance of test. The limb temperature was monitored continuously and remained between 32-36 degrees C during the performance of the NCS. Nerve Conduction Studies Anti Sensory Summary Table ?Stim Site NR Onset (ms) Norm Onset (ms) Peak (ms) Norm Peak (ms) O-P Amp (?V) Norm O-P Amp Site1 Site2 Delta-0 (ms) Dist (cm) Jose Roberto (m/s) Norm Jose Roberto (m/s) Left Sural Anti Sensory (Lat Mall) Calf ? 3.0 3.9 <4.0 13.0 >5.0 Calf Lat Mall 3.0 14.0 47 Right Sural Anti Sensory (Lat Mall) Calf ? 2.9 3.5 <4.0 8.6 >5.0 Calf Lat Mall 2.9 14.0 48 Motor Summary Table ?Stim Site NR Onset (ms) Norm Onset (ms) O-P Amp (mV) Norm O-P Amp iAmp (mV) Amp (1st) (%) Site1 Site2 Delta-0 (ms) Dist (cm) Jose Roberto (m/s) Norm Jose Roberto (m/s) Left Peroneal Motor (Ext Dig Brev) Ankle ? 4.0 <4.0 7.2 >2.5 8.1 100.0 Ankle Ext Dig Brev 4.0 0.0 B Fib ? 10.5 6.9 7.7 95.8 B Fib Ankle 6.5 30.5 47 >40 Poplt ? 10.7 6.6 7.5 91.7 Poplt B Fib 0.2 4.0 200 >40 Left Tibial Motor (Abd Fuchs Brev) Ankle ? 3.0 <5 14.2 >2.5 21.3 100.0 Ankle Abd Fuchs Brev 3.0 0.0 Knee ? 11.3 11.2 16.6 78.9 Knee Ankle 8.3 37.0 45 >40 EMG ?Side Muscle Nerve Root Ins Act Fibs Psw Amp Dur Poly Recrt Int Pat Comment Left AbdHallucis MedPlantar S1-2 Nml Nml Nml Nml Nml 0 Nml Complete Left AntTibialis Dp Br Peron L4-5 Incr 1+ 1+ Nml Nml 0 Nml Complete Left PostTibialis Tibial L5, S1 Nml Nml Nml Nml Nml 0 Nml Complete Left MedGastroc Tibial S1-2 Nml Nml Nml Nml Nml 0 Nml Complete Left VastusMed Femoral L2-4 Nml Nml Nml Nml Nml 0 Nml Complete FINDINGS: All motor and sensory nerves tested showed normal latencies, amplitudes and conduction velocities. Concentric needle EMG was performed in selected muscles of the left lower extremity. Study revealed Signs of electric abnormalities as shown in the table above. Left TA showed increased insertional activity, PSWs and fibrillations. IMPRESSION: 1. There is no electrodiagnostic evidence for peroneal neuropathy, tibial neuropathy, lumbosacral plexopathy, or peripheral neuropathy. 2. Cannot completely rule out a left L5 radiculopathy. Patient unable to do needle EMG of lumbar paraspinals. Further clinical correlation recommended. Thank you for your kind referral. Matilde Gallagher MD, RASHIDA Board Certified, [place] [employer] and [employer] (ABPMR) Board Certified, [place] Board [employer] Electro[employer] (ABEM) CODIN [address] MTDD
== END 2024-02-10 08:53 | disposition home or self-care (01) ==
LOC: HO.NEURO 08:52
PROVIDERS: PCP Internal Medicine; Visit Provider Student in an Organized Health Care Education/Training Program
DX: R20.0 Anesthesia of skin (principal)
CPT/HCPCS: 95886; 95908

== ENCOUNTER → 2024-02-10 08:55 | Outpatient (BNV) | payer MEDICARE, SELFPAY | PROVIDERS: PCP Internal Medicine; Visit Provider Physical Medicine & Rehabilitation | DX: R20.0 Anesthesia of skin (principal) | CPT/HCPCS: 95886; 95908 ==

== ENCOUNTER 2024-02-25 08:06 | Outpatient (AMB) | payer MEDICARE, SELFPAY ==
--- NOTE | 2024-02-25 08:06 | A.OFFVIS_ITS ---
Vital Signs 02/25/24 08:22 Height 5 ft 3 in Weight 190 lb 14.725 oz BMI 33.8 BP 124/62 Blood Pressure Location Lt brachial Position Sitting Respiration 18 Pulse 73 Pulse Source Pulse Oximeter Pulse Oximetry (%) 98 Oxygen Delivery Method Room Air Intake Visit Reasons: Sarcoid/CM Intake Note: Patient presents for Sarcoid. Allergies codeine [CODEINE] Allergy (Intermediate, Verified 02/25/24 08:22) TACHYCARDIA phentermine Allergy (Intermediate, Verified 02/25/24 08:22) Palpitations Medication List - Last Reconciled 02/25/24 by Carmel Morrison MD acetaminophen ER (Tylenol Arthritis Pain) 650 mg PO Q12H PRN mirtazapine 15 mg PO BEDTIME 90 days pantoprazole 40 mg PO DAILY HPI Comments Details: This is a 73-year-old female with history of sarcoidosis who presents for follow-up after completion of her EMG/NCV of lower extremities. She states that she feels better that last visit. She has been walking regularly. Recently she went to [place] and she was able to walk without any pains. Previous history: Patient has a history of biopsy-proven sarcoid which presented as Manjula syndrome in 2013. She was treated with prednisone and her symptoms resolved. Per most recent pulmonary note from April 2022 her sarcoid symptoms have remained inactive. Patient denies any new concerns today. She reports intermittent generalized joint pain in her shoulders and knees. She reports increased pain in her shoulders that lasts for a few days to weeks, she attributes this to positioning in bed at night. She states her left shoulder has been more bothersome recently. She admits to intermittent left knee pain that is worse after prolonged sitting. Previously followed with Orthopedics and has not required any injections or recent orthopedic follow-up. States she walks frequently and stays active. She manages her symptoms with Tylenol and Voltaren gel. She has a history of DVT in the right leg in 2013. She was anticoagulated for a year. Currently on baby aspirin no recurrent episodes of DVT. She follows with Hematology every 6 months. Currently on levothyroxine for hypothyroidism. [facility] Medical History Right leg DVT History of sarcoidosis Pre-op evaluation Thyroid nodule Hypothyroidism Vertigo GERD (gastroesophageal reflux disease) Mild major depression, single episode Goiter Elevated TSH Obese Impaired glucose tolerance Mixed hyperlipidemia Sarcoid Primary osteoarthritis of left knee History of DVT (deep vein thrombosis) Anxiety Surgical History Hx of colonoscopy History of section History of tubal ligation Family History Father Renal cancer Mother No problems noted. Brother Myocardial infarction Social History Housing: House Alcohol intake: current Alcohol intake frequency: a few times a month Alcohol type: wine Patient Tobacco Use Status: Never used Tobacco e-Cigarette/Vaping Use: Never Used Second Hand Smoke Exposure: No service: No Current occupational status: retired Cognitive needs: No Hearing needs: No Vision needs: No Review of Systems Musc Reports arthralgias Physical Exam Vital Signs: Last Vital Signs Pulse 73 02/25/24 08:22 Resp 18 02/25/24 08:22 BP 124/62 02/25/24 08:22 Pulse Ox 98 02/25/24 08:22 Oxygen Delivery Method Room Air 02/25/24 08:22 BMI result Body Mass Index 33.8 Const General: cooperative, healthy appearing and comfortable Nutritional Appearance: obese Orientation/consciousness: patient oriented x3 Limitations: no limitations HEENT Head: Yes normocephalic and Yes atraumatic Resp Effort & Inspection: normal respiratory effort and able to speak in complete sentences Skin General skin exam: no rashes or lesions noted Neuro General: patient oriented x3 Extrem Other: Osteoarthritic changes of both hands with no active synovitis Negative straight leg raise test bilaterally Left knee left knee valgus and crepitus with flexion and extension Assessment & Plan Assessment & Plan (1) Left leg numbness: Code(s): R20.0 - Anesthesia of skin Category: Medical Plan: This is a 73-year-old female with history of sarcoidosis who presented last visit for evaluation of left lower extremity numbness. I ordered EMG/NCV of lower extremities which was unremarkable but patient could not tolerate testing of paraspinal so radiculopathy could not be excluded. Per patient her symptoms improved spontaneously. She has been walking regularly. Follow-up as needed Plan I spent 15 minutes reviewing patient's chart, evaluating patient, counseling patient and documenting in the chart Coding Level of Care Code Est Pt Level 3 (56503) Diagnoses Left leg numbness R20.0
[2024-02-25 08:22] VITALS: BP 124/62; PULSE 73; RESP 18; O2SAT 98; BMI 33.8
== END 2024-02-25 08:47 | disposition home or self-care (01) ==
PROVIDERS: PCP Internal Medicine; Visit Provider Student in an Organized Health Care Education/Training Program
DX: R20.0 Anesthesia of skin (principal)
CPT/HCPCS: 99213

== ENCOUNTER → 2024-02-25 08:06 | Outpatient (BNVA) | payer MEDICARE, SELFPAY | PROVIDERS: PCP Internal Medicine; Visit Provider Student in an Organized Health Care Education/Training Program | DX: R20.0 Anesthesia of skin (principal) | CPT/HCPCS: 99212 ==

== ENCOUNTER 2024-04-05 07:39 | Outpatient (REF) | payer MEDICARE, SELFPAY ==
[2024-04-05 09:13] LABS: Alanine Aminotransferase 21 U/L (0-31); Albumin Level 4.4 g/dL (3.5-5.0); Alkaline Phosphatase 65 U/L (39-117); Anion Gap 10 (12-20); Aspartate Amino Transferase 21 U/L (5-31); Bilirubin Total 0.5 mg/dL (0.0-1.0); Blood Urea Nitrogen 24 mg/dL (9-16); Carbon Dioxide 27 mmol/L (22-29); Chloride 107 mmol/L (96-108); Cholesterol 218 mg/dL (<200); Estimated Glomerular Filt Rate > 60; Glucose Fasting 122 mg/dL (60-99); HDL Cholesterol 56 mg/dL (>40); LDL Cholesterol Calculated 133 mg/dL (<100); Potassium 3.8 mmol/L (3.3-5.1); Sodium 140 mmol/L (135-145); Total Protein 7.2 g/dL (6.5-8.0); Triglycerides 148 mg/dL (<150)
[2024-04-05 09:31] LABS: Free T4 (Free Thyroxine) 0.97 ng/dL (0.71-1.85); Thyroid Stimulating Hormone 4.61 uIU/mL (0.32-4.0)
== END 2024-04-05 07:40 | disposition home or self-care (01) ==
LOC: HO.LAB 07:39
PROVIDERS: PCP Internal Medicine; Visit Provider Internal Medicine
DX: R73.02 Impaired glucose tolerance (oral) (principal); E78.2 Mixed hyperlipidemia; E03.9 Hypothyroidism, unspecified
CPT/HCPCS: 36415; 80053; 80061; 84439; 84443

== ENCOUNTER 2024-04-06 07:29 | Outpatient (AMB) | payer MEDICARE, SELFPAY ==
--- NOTE | 2024-04-06 07:43 | A.OFFPC_ITS ---
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: Yes Gum Scoring Machine Operator Language: Rags Laborer Name: Preethi Hsu MD Information Interpreted: non-clinical & clinical Accompanied by: Self / Same As Patient Allergies codeine [CODEINE] Allergy (Intermediate, Verified 04/06/24 07:57) TACHYCARDIA phentermine Allergy (Intermediate, Verified 04/06/24 07:57) Palpitations Medication List - Last Reconciled 04/06/24 by Preethi Hsu MD pantoprazole 40 mg PO DAILY Tobacco use date assessed: 04/06/24 Fall risk assessment: No Falls in past year Last assessed Fall Risk: 04/06/24 Dental Screening Dental Screen Date: 04/06/24 Did you have a dental visit in the last 12 months?: No Did you have a dental problem in the last 6 months where you did not have access to dental care?: No Was dental information given to patient?: Patient has dentist HPI HPI Comments History of Present Illness Details The patient is a 73-year-old female presenting for her physical exam with a history of sarcoidosis. She is under the care of a computer programming professor for this condition. She notes no new symptoms or exacerbations currently, and there is no mention of any change in management. Additionally, she reports experiencing gastroesophageal reflux disease (GERD) managed with pantoprazole, which is her only current medication. She also mentions allergies to codeine and phentermine, with the latter causing palpitations. The patient discusses her cardiovascular risk, calculated using the [place] risk score, which indicates a 4.3% risk over the next ten years. Her cholesterol levels are elevated, but medication is deemed unnecessary at this point. There is also a historical note on her family history, where her father suffered from kidney cancer, and her mother had issues with low weight. She complains of burning like pain in left foot and I will start her on gabapentin at bedtime. Patient is aware that it can cause sedation. She has prediabetes and needs a low-carbohydrate diet and is aware of this matter. - Discussed and recommended vaccination, highlighting its necessity after age 65. - [place] risk score conducted, showi ng a 4.3% ten-year risk of cardiova scular events. - Emphasized dietary modifications to neha deng elevated cholesterol levels. - Frequent laboratory checks to monitor diabetes risk; glucose levels noted at 122. - Colonoscopy done 2014 and will be refe r throught open access - Pneumonia vaccine done today. Decline Tdap and flu vaccine today. - Mammogram done 2023. - DEXA scan ordered. [facility] Medical History (Updated 04/06/24 @ 08:14 by Preethi Hsu MD) Right leg DVT History of sarcoidosis Pre-op evaluation Thyroid nodule Hypothyroidism Vertigo GERD (gastroesophageal reflux disease) Mild major depression, single episode Goiter Elevated TSH Obese Impaired glucose tolerance Mixed hyperlipidemia Sarcoid Primary osteoarthritis of left knee History of DVT (deep vein thrombosis) Anxiety Surgical History Hx of colonoscopy History of section History of tubal ligation Family History Father Renal cancer Mother No problems noted. Brother Myocardial infarction Social History Housing: House Alcohol intake: current Alcohol intake frequency: a few times a month Alcohol type: wine Patient Tobacco Use Status: Never used Tobacco e-Cigarette/Vaping Use: Never Used Second Hand Smoke Exposure: No service: No Current occupational status: retired Cognitive needs: No Hearing needs: No Vision needs: No Questionnaire PHQ-9 Over the last 2 weeks, how often have you been bothered by any of the following problems? 1. Little interest or pleasure in doing things: not at all 2. Feeling down, depressed, or hopeless: not at all 3. Trouble falling or staying asleep, or sleeping too much: several days 4. Feeling tired or having little energy: not at all 5. Poor appetite or overeating: not at all 6. Feeling bad about yourself - or that you are a failure or have let yourself or your family down: not at all 7. Trouble concentrating on things, such as reading the newspaper or watching television: not at all 8. Moving or speaking so slowly that other people could have noticed. Or the opposite - being so fidgety or restless that you have been moving around a lot more than usual: not at all 9. Thoughts that you would be better off or of hurting yourself in some way: not at all Total score: 1 Depression Screening Interpretation: Negative Depression Screening Done: Yes 13056 - PHQ-9 Billing: Yes Source: Developed by Drs. Cristopher Donnelly, Olga Lidia Velasco, Esteban Don and colleagues, with an educational jace from [employer]. Thrive Questionnaire Date Thrive assessed: 04/06/24 I am a: Patient What is your living situation today?: I have a steady place to live Within the past 12 months, did the food you bought not last and you didn't have the money to get more?: Never true Within the past 12 months, did you worry whether your food would run out before you got money to buy more?: Never true Do you have trouble paying for medicines?: No Do you have trouble getting transportation to medical appointments?: No Do you have trouble paying your heating and electricity bill?: No Do you have trouble taking care of your child, family member or friend?: No Do you have trouble with day-to-day activities such as bathing, preparing meals, shopping, managing finances, etc.?: No Are you currently unemployed and looking for a job?: No Are you interested in more education?: No Please select the resources that you would like help with: None Currently or been in a relationship where the following occur: I choose not to answer THRIVE Score: 0 AUDIT C Alcohol Use Questionnaire (AUDIT-C) 1. How often do you have a drink containing alcohol?: Monthly or less 2. How many drinks containing alcohol do you have on a typical day when you are drinking?: 1 or 2 3. How often do you have six or more drinks on one occasion?: Never Total Score: 1 Score Reviewed/Action Taken: No TR-7 AMB Questionnaire TR-7 Date TR - 7 assessed: 04/06/24 Feeling nervous, anxious, or on edge: 0 = Not at all Not being able to stop or control worryin = Not at all Worrying too much about different things: 1 = Several days Trouble relaxin = Several days Being so restless that it is hard to sit still: 1 = Several days Becoming easily annoyed or irritable: 1 = Several days Feeling afraid as if something awful might happen: 0 = Not at all Total TR-7 score (0-4 normal; 5-9 mild; 10-14 moderate; 15-21 severe): 4 Source: Developed by Drs. Cristopher Donnelly, Olga Lidia Velasco, Esteban Don and colleagues, with an educational jace from [employer]. TR-7 Assessment Billing TR-7 Assessment Tool: TR-7 Assessment 61616 Review of Systems Const All systems reviewed & are unremarkable except as noted in HPI and below Card Denies chest pain at rest, Denies chest pain with activity, Denies edema, Denies irregular heart rhythm, Denies claudication, Denies dyspnea, Denies dyspnea on exertion, Denies orthopnea, Denies paroxysmal nocturnal dyspnea and Denies slow heart rate Resp Denies cough, Denies dyspnea and Denies dyspnea on exertion GI Denies abdominal pain, Denies change in bowel habits, Denies excessive flatus, Denies nausea and Denies vomiting Denies urinary incontinence, Denies urinary hesitancy and Denies urinary urgency Neuro Denies behavioral changes, Denies confusion and Denies lack of coordination Psych Denies behavioral changes and Denies confusion Physical exam (Primary Care) Vital Signs: Last Vital Signs BP 130/80 04/06/24 07:51 BMI result Body Mass Index 33.7 BMI Assessment/Plan discussion: High BMI High, discussed plan: lifestyle, weight reduction, dietary and physical activity Tobacco/Smoking Status: Tobacco use Status Tobacco use date assessed 04/06/24 04/06/24 07:49 Patient Tobacco Use Status Never used Tobacco 04/06/24 07:49 e-Cigarette/Vaping Use Never Used 04/06/24 07:49 PHQ-9: PHQ-9 Score PHQ-9: Total score 1 04/06/24 08:17 Depression Screening Interpretation: Negative Thrive Assessment: Date of Thrive Assessment Date Thrive assessed 04/06/24 04/06/24 07:49 Currently or been in a relationship where the following occur: I choose not to answer Const General: No confusion Orientation/consciousness: patient oriented x3 and No confusion HENMT Head: Yes normal to inspection, Yes normocephalic and Yes atraumatic Ears: external ears normal Eyes General: appearance normal, both eyes and all related structures Eyelids: Yes eyelids normal Conjunctivae: conjunctivae normal Neck Neck: Yes normal visual inspection and Yes supple Resp Effort & Inspection: normal respiratory effort Auscultation: clear to auscultation bilaterally Cardio Jugular venous distension: no JVD Rate: regular rate Rhythm: regular rhythm Heart sounds: S1 normal heart sound present and S2 normal heart sound present GI Inspection: Yes normal to inspection Palpation (GI): Soft to palpation and nontender Auscultation: normal bowel sounds Skin General skin exam: no rashes or lesions noted Neuro General: patient oriented x3, no focal motor deficits and No confusion Extrem General: Yes full ROM Psych Appearance: grossly normal Office Procedures Flu Questionnaire Does the patient have a severe egg allergy?: No Immunizations Fluarix Triv [id number] (PF) 45 mcg (15 mcg x 3)/0.5 mL IM syringe Performing Provider: Preethi Hsu MD Performing Location: [facility] Documented (not given) by: JOE Oh on 04/06/24 07:56 Reason Not Given: Patient Refused pneumoc 20-magda conj-dip cr(PF) 0.5 mL IM syringe Performing Provider: Preethi Hsu MD Performing Location: [facility] Administered by: JOE Oh on 04/06/24 08:17 Dose Route Admin Location Dispensed Lot Number Expiration Date [place] [employer] 0.5 mL IM Left Deltoid 0.5 mL [id number] 07/14/25 4703-4060-55 [employer] VIS Given Date VIS Provided VIS Publication Date 04/06/24 Single Vaccine 21 Eligibility Eligibility Date Funding Source Not [facility] Eligible 04/06/24 Private Coding Level of Care Code Est Pt Level 3 (58799) Est Pt Prev Care >65y(52164) Diagnoses Physical exam Z00.00 Neuropathy G62.9 Additional Codes TR-7 Assessment Billing - TR-7 Assessment Tool: TR-7 Assessment 98241 ([id number]) PHQ-9 - 93224 - PHQ-9 Billing: Yes ([id number]) Time Spent (min) 33 Assessment & Plan Assessment & Plan (1) Physical exam: Code(s): Z00.00 - Encounter for general adult medical examination without abnormal findings Category: Medical (2) Neuropathy: Code(s): G62.9 - Polyneuropathy, unspecified Category: Medical Plan - Continue pantoprazole for GERD management. - Monitor sarcoidosis under computer programming professor supervision, no immediate changes required. - Recheck [place] risk score in light of elevated cholesterol. - Consider lifestyle modifications to address mildly elevated cholesterol; pharmacotherapy deferred. - Encourage a balanced diet to maintain appropriate blood sugar levels. - Recommendation for topical application of hydrocortisone to manage minor skin rashes. - Begin a trial of low-dose medication for neuropathic pain management, increase dose as tolerated. Patient was informed and verbally consented to the use of an ambient scribe for clinic note documentation during this visit. During the visit, I discussed the patient's risk of cardiovascular events, referencing the [place] score. We reviewed her elevated cholesterol and agreed that medication was not currently indicated, provided she adheres to dietary measures. I explained the management of sarcoidosis with her computer programming professor and confirmed that no new interventions are needed at this time. We discussed the potential initiation of a neuropathic pain medication, highlighting its possible sedation effects and agreed to a cautious titration approach. I advised her on moisturizing her skin rash with [id number] hydrocortisone cream and ensured she understood to monitor any allergic reactions to topical treatments. Orders: Orders Influenza [id number] Immunization Today Z23 - Encounter for immunization XR DEXA axial skeleton Today Z78.0 - Asymptomatic menopausal state Thyroid Stimulating Hormone Today E03.9 - Hypothyroidism, unspecified Free T4 (Free Thyroxine) Today E03.9 - Hypothyroidism, unspecified Pneumococcal 20 Immunization Today Z23 - Encounter for immunization Referrals Open Access Screening Colonoscopy Referral Z12.12 - Encounter for screening for malignant neoplasm of rectum Medications: New gabapentin 100 mg PO BEDTIME 90 caps 0RF 90 days G62.9 - Polyneuropathy, unspecified Patient Instructions: - Continue taking pantoprazole as prescribed. - Maintain dietary modifications to manage cholesterol. - Apply hydrocortisone to rash as needed. - Use compresses on eyes for swelling before bed. - Report any new symptoms or changes related to sarcoidosis. - Follow up for lab work in two months. - Begin new pain medication at night and monitor for drowsiness. - Contact me if issues arise or for further clarification on instructions.
[2024-04-06 07:51] VITALS: BP 130/80; BMI 33.7
== END 2024-04-06 08:17 | disposition home or self-care (01) ==
PROVIDERS: PCP Internal Medicine; Visit Provider Internal Medicine
DX: Z00.00 Encounter for general adult medical examination without abnormal findings (principal); G62.9 Polyneuropathy, unspecified; Z23 Encounter for immunization

== ENCOUNTER → 2024-04-06 07:29 | Outpatient (BNVA) | payer MEDICARE, SELFPAY | PROVIDERS: PCP Internal Medicine; Visit Provider Internal Medicine | DX: Z00.00 Encounter for general adult medical examination without abnormal findings (principal); Z23 Encounter for immunization; G62.9 Polyneuropathy, unspecified | CPT/HCPCS: 90471; 90677; 96127; 99212; 99397 ==

== ENCOUNTER 2024-05-05 08:41 | Outpatient (REF) | payer MEDICARE, SELFPAY | END 2024-05-05 08:42 | disposition home or self-care (01) | LOC: HO.MAMMO 08:41 | PROVIDERS: PCP Internal Medicine; Visit Provider Internal Medicine | DX: Z13.820 Encounter for screening for osteoporosis (principal); Z78.0 Asymptomatic menopausal state | CPT/HCPCS: 77080 ==

== ENCOUNTER → 2024-05-05 08:45 | Outpatient (BNV) | payer MEDICARE, SELFPAY | PROVIDERS: PCP Internal Medicine; Visit Provider Radiology Diagnostic Radiology | DX: E28.39 Other primary ovarian failure (principal) | CPT/HCPCS: 77085 ==

== ENCOUNTER 2024-05-12 08:15 | Outpatient (REF) | payer MEDICARE, SELFPAY ==
--- NOTE | ~2024-05-12 | XR_ITS ---
CLINICAL HISTORY: M25.561 - Pain in right knee AP and lateral views right knee Comparison: None Findings: No fractures, subluxations or dislocations. Mild joint space narrowing medial knee compartment with small enthesophytes. No osteochondral lesions or loose bodies. Narrowing of the patellofemoral compartment with posterior patellar enthesophytes. No suprapatellar joint effusion. No prepatellar soft tissue swelling. Normal bone mineralization and soft tissues. No unusual radiopaque foreign body. Impression: 1. Mild osteoarthritic changes medial knee compartment moderate osteoarthritic changes patellofemoral compartment. This document has been electronically signed by: Mal Gonzalez MD on 05/12/2024 09:35:26
== END 2024-05-12 08:16 | disposition home or self-care (01) ==
LOC: HO.XRAY 08:15
PROVIDERS: PCP Internal Medicine; Visit Provider Internal Medicine
DX: M25.561 Pain in right knee (principal)
CPT/HCPCS: 73560

== ENCOUNTER → 2024-05-12 08:20 | Outpatient (BNV) | payer MEDICARE, SELFPAY | PROVIDERS: PCP Internal Medicine; Visit Provider Radiology Diagnostic Radiology | DX: M25.561 Pain in right knee (principal) | CPT/HCPCS: 73560 ==

== ENCOUNTER 2024-05-19 09:59 | Outpatient (AMB) | payer MEDICARE, SELFPAY ==
[2024-05-19 10:08] VITALS: BP 116/70; PULSE 79; RESP 20; TEMP 36.9; O2SAT 95
--- NOTE | 2024-05-19 10:08 | MHC.PC.OV ---
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: No Accompanied by: Self / Same As Patient Allergies codeine [CODEINE] Allergy (Intermediate, Verified 05/19/24 10:19) TACHYCARDIA phentermine Allergy (Intermediate, Verified 05/19/24 10:19) Palpitations Medication List - Last Reconciled 05/19/24 by LISANDRO Kim clobetasol 0.05% 1 appl topical DAILY 2 weeks pantoprazole 40 mg PO DAILY Tobacco use date assessed: 04/06/24 Fall risk assessment: 1 Fall in past year Last assessed Fall Risk: 05/19/24 Dental Screening Dental Screen Date: 05/19/24 Did you have a dental visit in the last 12 months?: No Did you have a dental problem in the last 6 months where you did not have access to dental care?: No HPI right knee pain HPI Details Patient is a 73 old female with significant past medical history is of polyarthralgia, primary osteoarthritis of right knee Patient is presenting with complaints of right knee pain and right hip soreness Patient reports that she fell on her right side on the ice about 10 days ago and was feeling okay She reports that last Thursday she went into a store and was unable to move as usual Reports that she had an x-ray done of the right knee and it showed arthritis Patient reports that even though she notes that this arthritis, she would like the pain managed better so she can stay active On exam: No erythema, no edema, no creptitus with ROM. +tenderness to posterior right knee. Meloxicam 15 mg daily and lidocaine patch PFSH Medical History Right leg DVT History of sarcoidosis Pre-op evaluation Thyroid nodule Hypothyroidism Vertigo GERD (gastroesophageal reflux disease) Mild major depression, single episode Goiter Elevated TSH Obese Impaired glucose tolerance Mixed hyperlipidemia Sarcoid Primary osteoarthritis of left knee History of DVT (deep vein thrombosis) Anxiety Surgical History Hx of colonoscopy History of section History of tubal ligation Family History Father Renal cancer Mother No problems noted. Brother Myocardial infarction Social History Housing: House Alcohol intake: current Alcohol intake frequency: a few times a month Alcohol type: wine Patient Tobacco Use Status: Never used Tobacco e-Cigarette/Vaping Use: Never Used Second Hand Smoke Exposure: No service: No Current occupational status: retired Cognitive needs: No Hearing needs: No Vision needs: No Questionnaire PHQ-9 Over the last 2 weeks, how often have you been bothered by any of the following problems? 2. Feeling down, depressed, or hopeless: not at all 3. Trouble falling or staying asleep, or sleeping too much: not at all 4. Feeling tired or having little energy: not at all 5. Poor appetite or overeating: not at all 6. Feeling bad about yourself - or that you are a failure or have let yourself or your family down: not at all 7. Trouble concentrating on things, such as reading the newspaper or watching television: not at all 8. Moving or speaking so slowly that other people could have noticed. Or the opposite - being so fidgety or restless that you have been moving around a lot more than usual: not at all 9. Thoughts that you would be better off or of hurting yourself in some way: not at all Depression Screening Interpretation: Negative Depression Screening Done: Yes Source: Developed by Drs. Cristopher Donnelly, Olga Lidia Velasco, Esteban Don and colleagues, with an educational jace from [employer]. Thrive Questionnaire Date Thrive assessed: 04/06/24 I am a: Patient What is your living situation today?: I have a steady place to live Within the past 12 months, did the food you bought not last and you didn't have the money to get more?: Never true Within the past 12 months, did you worry whether your food would run out before you got money to buy more?: Never true Do you have trouble paying for medicines?: No Do you have trouble getting transportation to medical appointments?: No Do you have trouble paying your heating and electricity bill?: No Do you have trouble taking care of your child, family member or friend?: No Do you have trouble with day-to-day activities such as bathing, preparing meals, shopping, managing finances, etc.?: No Are you currently unemployed and looking for a job?: No Are you interested in more education?: No Please select the resources that you would like help with: None Currently or been in a relationship where the following occur: I choose not to answer THRIVE Score: 0 TR-7 AMB Questionnaire TR-7 Date TR - 7 assessed: 05/19/24 Feeling nervous, anxious, or on edge: 3 = Nearly every day Not being able to stop or control worryin = Not at all Worrying too much about different things: 0 = Not at all Trouble relaxin = Several days Being so restless that it is hard to sit still: 0 = Not at all Becoming easily annoyed or irritable: 0 = Not at all Feeling afraid as if something awful might happen: 0 = Not at all Total TR-7 score (0-4 normal; 5-9 mild; 10-14 moderate; 15-21 severe): 4 Source: Developed by Drs. Cristopher Donnelly, Olga Lidia Velasco, Esteban Don and colleagues, with an educational jace from [employer]. Review of Systems Const Denies headache(s) Eyes Denies loss of vision ENT Denies vertigo, Denies dizziness, Denies headache(s) and Denies sore throat Card Denies chest pain, Denies leg edema and Denies lightheadedness Resp Denies cough, Denies hemoptysis and Denies wheezing GI Denies abdominal pain, Denies melena, Denies constipation, Denies diarrhea and Denies vomiting Denies urinary frequency, Denies dysuria and Denies urinary urgency Musc Denies deformity, Reports arthralgias (right knee pain), Denies joint swelling, Denies limited range of motion (+pain with movement), Denies muscle weakness, Denies numbness, Denies tingling and Reports other Neuro Denies Abnormal speech present, Denies behavioral changes, Denies vertigo, Denies dizziness, Denies headache(s), Denies loss of vision, Denies memory loss, Denies numbness and Denies tingling Psych Denies anxiety, Denies behavioral changes, Denies depression, Denies memory loss and Denies panic attacks Sukh/Lymph Denies easy bleeding and Denies easy bruising Aller/Immun Denies wheezing Physical exam (Primary Care) Vital Signs: Last Vital Signs Temp 98.5 F 05/19/24 10:08 Pulse 79 05/19/24 10:08 Resp 20 05/19/24 10:08 BP 116/70 05/19/24 10:08 Pulse Ox 95 05/19/24 10:08 Oxygen Delivery Method Room Air 05/19/24 10:08 Tobacco/Smoking Status: Tobacco use Status Tobacco use date assessed 04/06/24 05/19/24 10:08 Patient Tobacco Use Status Never used Tobacco 05/19/24 10:08 e-Cigarette/Vaping Use Never Used 05/19/24 10:08 Depression Screening Interpretation: Negative Thrive Assessment: Date of Thrive Assessment Date Thrive assessed 04/06/24 05/19/24 10:08 Currently or been in a relationship where the following occur: I choose not to answer Const General: healthy appearing, no acute distress, alert and awake Nutritional Appearance: well nourished Orientation/consciousness: oriented to person, oriented to place and oriented to time HENMT Ears: TM's normal bilaterally General nose exam: Normal nasal mucous membranes and turbinates present Eyes Conjunctivae: conjunctivae normal Sclerae: sclerae normal Pupils: Equal, round and reactive pupils present Neck Neck: Yes no lymphadenopathy and Yes no JVD Thyroid: Thyroid normal Carotids: no bruits Resp Effort & Inspection: normal respiratory effort and not tachypneic Auscultation: no crackles, no rales, no rhonchi and no wheezes Cardio Rate: regular rate Rhythm: regular rhythm Heart sounds: no murmurs and normal S1 and S2 GI Palpation (GI): Soft to palpation, nontender, no hepatomegaly and no splenomegaly Auscultation: normal bowel sounds General: Yes no CVA tenderness Back/Spine/Pelvis Back: no CVA tenderness Skin General skin exam: no rashes or lesions noted and dry skin Neuro General: oriented to person, oriented to place and oriented to time Cranial nerves: Yes Equal, round and reactive pupils present Speech: No Abnormal speech present Gait exam (Neuro): Normal gait present Motor exam (neuro): no tremor noted Extrem General: Yes full ROM, Yes capillary refill normal, Yes no joint enlargement, Yes Limp noted (right knee pain with ROM, no crepitus, no erythema, no edema, ) and Yes other (+tenderness posterior right knee) Right upper extremity: full ROM Left upper extremity: full ROM Right lower extremity: full ROM; no edema Left lower extremity: full ROM; no edema Psych Mental Status: mental status grossly normal Speech and movement: Normal speech and movement present Affect: normal affect Attitude: cooperative Thought process: Normal thought process present Coding Level of Care Code Est Pt Level 3 (05505) Diagnoses Primary osteoarthritis of right knee M17.11 Time Spent (min) 32 Assessment & Plan Assessment & Plan (1) Primary osteoarthritis of right knee: Code(s): M17.11 - Unilateral primary osteoarthritis, right knee Category: Medical Plan: S/p fall on ice x 10 days. Increased pain in right knee and ROM few days ago. On exam, no edema, no erythema, +ROM with pain. X-ray fall after fall without any acute findings. Will start the patient on meloxicam 15 mg daily and lidocaine patch topical to right knee Medications: New meloxicam 15 mg PO DAILY 60 tabs 2RF lidocaine 5% leave on most painful area for up to 12 hrs 1 patch topical DAILY 30 ea 3RF
== END 2024-05-19 10:38 | disposition home or self-care (01) ==
PROVIDERS: PCP Internal Medicine
DX: M17.11 Unilateral primary osteoarthritis, right knee (principal)

== ENCOUNTER → 2024-05-19 09:59 | Outpatient (BNVA) | payer MEDICARE, SELFPAY | PROVIDERS: PCP Internal Medicine | DX: M17.11 Unilateral primary osteoarthritis, right knee (principal) | CPT/HCPCS: 99212 ==

== ENCOUNTER → 2024-07-07 07:56 | Outpatient (BNVA) | payer MEDICARE, SELFPAY | PROVIDERS: PCP Internal Medicine; Visit Provider Physician Assistant Surgical ==

== ENCOUNTER → 2024-07-19 08:11 | Outpatient (BNVA) | payer MEDICARE, SELFPAY | PROVIDERS: PCP Internal Medicine; Visit Provider Surgery | DX: Z13.89 Encounter for screening for other disorder (principal) ==

== ENCOUNTER 2024-07-20 08:08 | Outpatient (AMB) | payer MEDICARE, SELFPAY ==
--- NOTE | 2024-07-20 08:50 | A.OFFVIS_ITS ---
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 Allergies codeine [CODEINE] Allergy (Intermediate, Verified 07/20/24 08:51) TACHYCARDIA phentermine Allergy (Intermediate, Verified 07/20/24 08:51) Palpitations Medication List - Last Reconciled 07/20/24 by Oh Callahan MD clobetasol 0.05% 1 appl topical DAILY 2 weeks lidocaine 5% 1 patch topical DAILY pantoprazole 40 mg PO DAILY HPI HPI 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: Details: Start time: 8.42am, End time: 9.25am ?I spent 38 minutes speaking with the patient on the phone plus an additional 5 minutes reviewing and updating records for a total of 43 minutes HPI Comments Details: Previous weight loss efforts: WW, Phentermine Wakes up: 6am, Sleeps: 11pm Breakfast: 8.30am (eggs with bread, oatmeal, banana) Lunch: 1pm (fish, carrots, zucchini) Dinner: 6pm (rice, meat, beans, tomatoes) Snacks: 10am (oranges, bananas, almonds) Exercise: Has a home treadmill Beverages: Coffee: (1 cup/d black), tea: occasionally green tea, soda: none, juice: none, ETOH: 2/month PFSH Medical History (Updated 07/20/24 @ 09:17 by Oh Callahan MD) Right leg DVT History of sarcoidosis Pre-op evaluation Thyroid nodule Hypothyroidism Vertigo GERD (gastroesophageal reflux disease) Mild major depression, single episode Goiter Elevated TSH Obese Impaired glucose tolerance Mixed hyperlipidemia Sarcoid Primary osteoarthritis of left knee History of DVT (deep vein thrombosis) Anxiety Surgical History Hx of colonoscopy History of section History of tubal ligation Family History Father Renal cancer Mother No problems noted. Brother Myocardial infarction Social History (Updated 07/07/24 @ 08:12 by JEANNINE Conte Housing: House Alcohol intake: current Alcohol intake frequency: holidays/special occasions only Alcohol type: wine Patient Tobacco Use Status: Never used Tobacco e-Cigarette/Vaping Use: Never Used Second Hand Smoke Exposure: No service: No Current occupational status: retired Cognitive needs: No Hearing needs: No Vision needs: No Telehealth Telehealth Telehealth Platform: Telephone Location of provider rendering services: practice address Location of patient: address on file Patient Identification confirmed using: Name, : Yes Telehealth method: voice only Patient verbally consented to treatment: Yes Patient verbally consented to billing insurance company: Yes Patient informed of any privacy concerns related to visit: Yes Minutes spent on Phone/Video with Pt.: 43 Assessment & Plan Assessment & Plan (1) Obese: Code(s): E66.9 - Obesity, unspecified Category: Medical Qualifiers: Obesity type: due to excess calories Obesity classification: adult class 1 (BMI 30 - 34.9) Serious obesity comorbidity presence: without serious comorbidity Body mass index: BMI 33.0-33.9 Qualified Code(s): E66.811 - Obesity, class 1; E66.09 - Other obesity due to excess calories; Z68.33 - Body mass index [BMI] 33.0-33.9, adult Plan: 1. Nutritional counseling. Start with one CELEBRATE REBUILD protein (buy at [facility]) shakes (HALF scoop in 8oz low fat unsweetened almond milk each) at 7am-9am, 1 protein bar (CELEBRATE protein bars, buy at [facility] [employer] shop) at 10am-12pm, one CELEBRATE REBUILD protein shake (HALF scoop in 8oz low fat unsweetened almond milk each) at 1pm-3pm, one Celebrate protein bar at 4pm- 6pm, dinner at 7pm (8 forks of protein and 8 forks of salad/vegetables) AND one more one CELEBRATE REBUILD protein shake (HALF scoop in 8oz low fat unsweetened almond milk each) at at 9pm-11pm. So you do 3 protein shakes, 2 protein bars and one meal per day. Meal to include lean meat (beef, fish, pork, turkey, chicken), or slovenian yogurt, or egg whites, or beans with a salad with olive oil and fruits (berries, pears, apples, kiwi). Avoid salt, breads, potatoes, rice, pasta, desserts. 3. Each shake would be drunk slowly, like coffee in a period of 2 hours. 4. Cut each bar in 4 pieces and eat each piece in 30min ?to make each bar last 2 hours. 5. I emphasized the importance of measuring accurately the food portion and measure it when serving the food in plate 6. The meal portions include 8 full-size forks of meat and 8 full-size forks of salad. You always eat the meat portion but you can replace up to 4 forks for salad/vegetables with rice, potatoes or pasta, or a fruit ?if you like. The less you do it the better weight loss will be. 7. One full-size fork is what it can be scooped on the fork without falling aside and not what can be bit with the fork. Use regular forks like those you find in a typical restaurant. 8.? Please buy the body composition scale we discussed and send me weight measurements as soon as possible and then once a week. Always include your diet and exercise plan. 9. Start treadmill with an incline of 0.0 and speed of 2.5 mph. Increase incline by 1 every 3 min to a max incline of 6.0, stay 3min at 6.0 and then return to 0.0 and repeat same steps until calorie goal is met. Goal is to burn 2000 calories per week on exercise, which means either 300 calories daily, or split them into two sessions per day with 150 calories each. 10. Goal is to lose at least 1.5-2lbs per week 11. Goal to lose at least 10% of your weight, which is about 19lbs. Minimum weight goal: 170lbs 12. Please follow the diet plan exactly without any change. If you don't like something about the plan or you feel hungry you need to communicate with me so I can help you revise the plan. You should not change the plan yourself
[2024-07-20 09:06] VITALS: BMI 34.6
== END 2024-07-20 09:25 | disposition home or self-care (01) ==
PROVIDERS: PCP Internal Medicine; Visit Provider Surgery
DX: E66.811 Obesity, class 1 (principal); Z68.33 Body mass index [BMI] 33.0-33.9, adult
CPT/HCPCS: 99203

== ENCOUNTER → 2024-07-20 08:08 | Outpatient (BNVA) | payer MEDICARE, SELFPAY | PROVIDERS: PCP Internal Medicine; Visit Provider Surgery | DX: Z13.89 Encounter for screening for other disorder (principal) ==

== ENCOUNTER 2024-08-02 10:41 | Outpatient (AMB) | payer MEDICARE, SELFPAY ==
[2024-08-02 11:49] VITALS: BP 130/84; PULSE 64; TEMP 36.9; O2SAT 97
--- NOTE | 2024-08-02 11:49 | AM.OFFWIN_ITS ---
Intake Vital Signs 08/02/24 11:49 Weight 192 lb 2 oz BP 130/84 Blood Pressure Location Lt brachial Position Sitting Pulse 64 Pulse Source Pulse Oximeter Temp 98.5 F Temp Source Oral Pulse Oximetry (%) 97 Oxygen Delivery Method Room Air Intake Visit Reasons: EP cold symptoms Intake Note: Patient here for cough and wheezing that has been present for about 3 days. Patient Tobacco Use Status: Never used Tobacco Allergies codeine [CODEINE] Allergy (Intermediate, Verified 08/02/24 11:54) TACHYCARDIA phentermine Allergy (Intermediate, Verified 08/02/24 11:54) Palpitations Do you need a note to return to daycare/school/sports/work: No HPI HPI Comments History of Present Illness Details This is a 73-year-old female with a past medical history of sarcoidosis presenting for evaluation of a cough and chest congestion that she has had for the past 3 days. Patient denies having any fevers, chills, otalgia, pharyngitis, chest pain or shortness for breath. She has not been taking any medication for treatment of her symptoms. [facility] Medical History Right leg DVT History of sarcoidosis Pre-op evaluation Thyroid nodule Hypothyroidism Vertigo GERD (gastroesophageal reflux disease) Mild major depression, single episode Goiter Elevated TSH Obese Impaired glucose tolerance Mixed hyperlipidemia Sarcoid Primary osteoarthritis of left knee History of DVT (deep vein thrombosis) Anxiety Surgical History Hx of colonoscopy History of section History of tubal ligation Family History Father Renal cancer Mother No problems noted. Brother Myocardial infarction Social History (Updated 07/07/24 @ 08:12 by Meme Meeks [facility]) Housing: House Alcohol intake: current Alcohol intake frequency: holidays/special occasions only Alcohol type: wine Patient Tobacco Use Status: Never used Tobacco e-Cigarette/Vaping Use: Never Used Second Hand Smoke Exposure: No service: No Current occupational status: retired Cognitive needs: No Hearing needs: No Vision needs: No Review of Systems Const All systems reviewed & are unremarkable except as noted in HPI and below Eyes Reports as per HPI and Reports no additional complaints ENT Reports as per HPI Card Reports no additional complaints and Denies dyspnea Resp Reports cough, Denies dyspnea and Reports wheezing GI Reports no additional complaints Reports no additional complaints Musc Reports no additional complaints Skin/Breast Reports system reviewed and no additional complaints, except as documented Neuro Reports no additional complaints Psych Reports no additional complaints Endo Reports no additional complaints Sukh/Lymph Reports no additional complaints Aller/Immun Reports no additional complaints and Reports wheezing Physical Exam Vital Signs: Last Vital Signs Temp 98.5 F 08/02/24 11:49 Pulse 64 08/02/24 11:49 BP 130/84 08/02/24 11:49 Pulse Ox 97 08/02/24 11:49 Oxygen Delivery Method Room Air 08/02/24 11:49 Const General: cooperative, healthy appearing, comfortable and no acute distress; No ill appearing Nutritional Appearance: average body habitus Orientation/consciousness: patient oriented x3 Limitations: no limitations HEENT Head: Yes normal to inspection and Yes normocephalic Ears: hearing grossly normal bilaterally, external ears normal, TM's normal bilaterally and EAC's normal General nose exam: Normal external nose present Mouth: Normal oral and palatal mucosa present Throat: Yes posterior oropharynx normal and No postnasal drainage Eyes General: appearance normal, both eyes and all related structures Neck Lymphatic: no lymphadenopathy noted Resp Effort & Inspection: normal respiratory effort, no audible wheezes and Actively coughing Auscultation: clear to auscultation bilaterally, no rhonchi and no wheezes Cardio Rate: regular rate Rhythm: regular rhythm Skin General skin exam: no rashes or lesions noted Neuro General: patient oriented x3 Psych Appearance: grossly normal Mental Status: mental status grossly normal Insight: Good insight present (Psych) Judgement: Good judgement present (Psych) Assessment & Plan Assessment & Plan (1) Acute upper respiratory infection: Comment: No clinical evidence of an acute bacterial sinusitis or pharyngitis. Code(s): J06.9 - Acute upper respiratory infection, unspecified Plan: Mucinex OTC with increased clear fluids daily. Antibiotic therapy is not warranted. Patient will follow up only as needed. Coding Level of Care Code Est Pt Level 3 (84733) Diagnoses Acute upper respiratory infection J06.9 Time Spent (min) 20
== END 2024-08-02 12:40 | disposition home or self-care (01) ==
PROVIDERS: PCP Internal Medicine; Visit Provider Physician Assistant
DX: J06.9 Acute upper respiratory infection, unspecified (principal)

== ENCOUNTER → 2024-08-02 10:41 | Outpatient (BNVA) | payer MEDICARE, SELFPAY | PROVIDERS: PCP Internal Medicine; Visit Provider Physician Assistant | DX: J06.9 Acute upper respiratory infection, unspecified (principal) | CPT/HCPCS: 99212 ==

== ENCOUNTER 2024-10-03 06:40 | Outpatient (REF) | payer MEDICARE, SELFPAY ==
[2024-10-03 08:44] LABS: Free T4 (Free Thyroxine) 0.95 ng/dL (0.71-1.85); Thyroid Stimulating Hormone 3.44 uIU/mL (0.32-4.0)
== END 2024-10-03 06:41 | disposition home or self-care (01) ==
LOC: HO.LAB 06:40
PROVIDERS: PCP Internal Medicine; Visit Provider Internal Medicine
DX: E03.9 Hypothyroidism, unspecified (principal)
CPT/HCPCS: 36415; 84439; 84443

== ENCOUNTER 2024-10-04 07:58 | Outpatient (AMB) | payer MEDICARE, SELFPAY ==
--- NOTE | 2024-10-04 08:03 | A.OFFPC_ITS ---
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 Retirement Required: No Accompanied by: Self / Same As Patient Allergies codeine (CODEINE) Allergy (Intermediate, Verified 10/04/24 08:16) TACHYCARDIA phentermine Allergy (Intermediate, Verified 10/04/24 08:16) Palpitations Medication List - Last Reconciled 10/04/24 by Preethi Hsu MD lidocaine 5% 1 patch topical DAILY meloxicam 15 mg PO DAILY pantoprazole 40 mg PO DAILY Tobacco use date assessed: 04/06/24 Fall risk assessment: 1 Fall in past year Last assessed Fall Risk: 10/04/24 Dental Screening Dental Screen Date: 05/19/24 HPI HPI Comments History of Present Illness Details The patient is a 73-year-old female presenting with management of osteoarthritis, osteopenia, and dizziness. The patient has a history of osteoarthritis in the knee, confirmed by imaging, which has been causing discomfort and affecting mobility. She has been managing the condition with lifestyle modifications and has not required medication intervention at this time. Osteopenia was identified during a bone density scan conducted in April, and the patient has been advised to take calcium with vitamin D supplements to manage this condition. The patient is aware of the potential side effect of constipation from calcium supplementation and has been taking measures to mitigate this. She has sarcoidosis follow by pulmonology and Rheumatology. The patient also reports episodes of dizziness most likely secondary to vertigo, which she describes as a soft dizziness that occurs intermittently. She associates these episodes with an inner ear imbalance and has been prescribed meclizine to manage the symptoms. Preventative care measures discussed include updating the tetanus vaccination, which the patient has not received in over ten years. The patient has received the pneumonia vaccine and is up to date with this immunization. She declines tetanus vaccine today. [facility] Medical History (Updated 10/04/24 @ 08:25 by Preethi Hsu MD) Right leg DVT History of sarcoidosis Pre-op evaluation Thyroid nodule Hypothyroidism Vertigo GERD (gastroesophageal reflux disease) Mild major depression, single episode Goiter Elevated TSH Obese Impaired glucose tolerance Mixed hyperlipidemia Sarcoid Primary osteoarthritis of left knee History of DVT (deep vein thrombosis) Anxiety Surgical History Hx of colonoscopy History of section History of tubal ligation Family History Father Renal cancer Mother No problems noted. Brother Myocardial infarction Social History Housing: House Alcohol intake: current Alcohol intake frequency: holidays/special occasions only Alcohol type: wine Patient Tobacco Use Status: Never used Tobacco e-Cigarette/Vaping Use: Never Used Second Hand Smoke Exposure: No service: No Current occupational status: retired Cognitive needs: No Hearing needs: No Vision needs: No Questionnaire Thrive Questionnaire Date Thrive assessed: 04/06/24 I am a: Patient What is your living situation today?: I have a steady place to live Within the past 12 months, did the food you bought not last and you didn't have the money to get more?: Never true Within the past 12 months, did you worry whether your food would run out before you got money to buy more?: Never true Do you have trouble paying for medicines?: No Do you have trouble getting transportation to medical appointments?: No Do you have trouble paying your heating and electricity bill?: No Do you have trouble taking care of your child, family member or friend?: No Do you have trouble with day-to-day activities such as bathing, preparing meals, shopping, managing finances, etc.?: No Are you currently unemployed and looking for a job?: No Are you interested in more education?: No Please select the resources that you would like help with: None Currently or been in a relationship where the following occur: I choose not to answer THRIVE Score: 0 TR-7 AMB Questionnaire TR-7 Date TR - 7 assessed: 05/19/24 Source: Developed by Drs. Cristopher Donnelly, Olga Lidia Velasco, Esteban Don and colleagues, with an educational jace from [employer]. Review of Systems Const All systems reviewed & are unremarkable except as noted in HPI and below Card Denies chest pain at rest, Denies chest pain with activity, Denies edema, Denies irregular heart rhythm, Denies claudication, Denies dyspnea, Denies dyspnea on exertion, Denies orthopnea, Denies paroxysmal nocturnal dyspnea and Denies slow heart rate Resp Denies cough, Denies dyspnea and Denies dyspnea on exertion GI Denies abdominal pain, Denies change in bowel habits, Denies excessive flatus, Denies nausea and Denies vomiting Denies urinary incontinence, Denies urinary hesitancy and Denies urinary urgency Musc Denies atrophy, Denies deformity and Denies limited range of motion Skin/Breast Denies bleeding lesions, Denies changing lesions and Denies rash Physical exam (Primary Care) BMI result Body Mass Index 33.7 BMI Assessment/Plan discussion: High BMI High, discussed plan: lifestyle, weight reduction, dietary and physical activity Tobacco/Smoking Status: Tobacco use Status Tobacco use date assessed 04/06/24 05/19/24 10:08 Patient Tobacco Use Status Never used Tobacco 08/02/24 11:50 e-Cigarette/Vaping Use Never Used 07/07/24 08:12 Thrive Assessment: Date of Thrive Assessment Date Thrive assessed 04/06/24 05/19/24 10:08 Currently or been in a relationship where the following occur: I choose not to answer Resp Effort & Inspection: normal respiratory effort Auscultation: clear to auscultation bilaterally Cardio Jugular venous distension: no JVD Rate: regular rate Rhythm: regular rhythm Heart sounds: S1 normal heart sound present and S2 normal heart sound present Extrem General: Yes full ROM Coding Level of Care Code Est Pt Level 4 (68870) Complex EM visit Add On G2211 Diagnoses Vertigo R42 GERD (gastroesophageal reflux disease) K21.9 Sarcoid D86.9 Primary osteoarthritis of right knee M17.11 Time Spent (min) 21 Assessment & Plan Assessment & Plan (1) Vertigo: Code(s): R42 - Dizziness and giddiness Category: Medical (2) GERD (gastroesophageal reflux disease): Code(s): K21.9 - Gastro-esophageal reflux disease without esophagitis Category: Medical (3) Sarcoid: Comment: HISTORY OF PULMONARY SARCOIDOSIS BUT HAS REMAINED TOTALLY ASYMPTOMATIC . NO ACTIVE SYMPTOMS AT PRESENT. Code(s): D86.9 - Sarcoidosis, unspecified Category: Medical (4) Primary osteoarthritis of right knee: Code(s): M17.11 - Unilateral primary osteoarthritis, right knee Category: Medical Plan The patient will continue with lifestyle modifications to manage osteoarthritis, focusing on maintaining mobility and reducing discomfort. Calcium with vitamin D supplementation is recommended for osteopenia, with a note to monitor for constipation as a side effect. Meclizine has been prescribed to address episodes of dizziness, which are suspected to be related to an inner ear imbalance. Preventative care includes updating the tetanus vaccination, which the patient plans to do after her vacation. Patient was informed and verbally consented to the use of an ambient scribe for clinic note documentation during this visit. I discussed with the patient the management of her osteoarthritis through lifestyle modifications and the importance of maintaining mobility. We reviewed the need for calcium with vitamin D supplementation for osteopenia and the potential side effect of constipation. I explained the use of meclizine for her dizziness, likely due to an inner ear imbalance, and advised her to take it as needed. We also discussed updating her tetanus vaccination, which she plans to do after her vacation. Medications: New calcium carbonate-vitamin D3 500 mg-10 mcg (400 unit) (Oyster Shell Calcium-Vit huston D3) 1 tab PO DAILY 90 tabs 1RF 90 days M85.80 - Other specified disorders of bone density and structure, unspecified site Patient Instructions: - Continue lifestyle modifications to manage osteoarthritis. - Take calcium with vitamin D daily for osteopenia and monitor for constipation. - Use meclizine as needed for dizziness. - Plan to update tetanus vaccination after vacation.
[2024-10-04 08:04] VITALS: BP 124/76; BMI 33.7
== END 2024-10-04 08:24 | disposition home or self-care (01) ==
LOC: HO.HMCH 07:59
PROVIDERS: PCP Internal Medicine; Visit Provider Internal Medicine
DX: R42 Dizziness and giddiness (principal); K21.9 Gastro-esophageal reflux disease without esophagitis; D86.9 Sarcoidosis, unspecified; M17.11 Unilateral primary osteoarthritis, right knee

== ENCOUNTER → 2024-10-04 07:58 | Outpatient (BNVA) | payer MEDICARE, SELFPAY | PROVIDERS: PCP Internal Medicine; Visit Provider Internal Medicine | DX: K21.9 Gastro-esophageal reflux disease without esophagitis (principal); D86.9 Sarcoidosis, unspecified; M17.11 Unilateral primary osteoarthritis, right knee | CPT/HCPCS: 99212 ==

== ENCOUNTER 2025-02-20 09:53 | Outpatient (AMB) | payer MEDICARE, SELFPAY ==
--- NOTE | 2025-02-20 10:07 | MHC.OFFWIV ---
Intake Vital Signs 02/20/25 10:08 Height 5 ft 2 in Weight 191 lb BMI 34.9 BP 108/72 Blood Pressure Location Rt brachial Position Sitting Pulse 71 Pulse Source Pulse Oximeter Temp 97.7 F Temp Source Oral Pulse Oximetry (%) 95 Oxygen Delivery Method Room Air Intake Visit Reasons: EP Sore throat Intake Note: Patient presents c/o sore throat related to acid reflux x3 weeks. Patient Tobacco Use Status: Never used Tobacco Allergies codeine (CODEINE) Allergy (Intermediate, Verified 02/20/25 10:10) TACHYCARDIA phentermine Allergy (Intermediate, Verified 02/20/25 10:10) Palpitations HPI HPI Comments History of Present Illness Details History of Present Illness - The patient is a 74-year-old female presenting with a sour taste in her mouth which began a few days ago. - She experiences this taste upon swallowing and has noticed belching with a sour taste. - She reports a slight cough but denies chest pain or fever, and her symptoms do not worsen when lying down. - She has a known history of acid reflux and takes pantoprazole, which she finds to be only sometimes effective. - Dietary habits include drinking apple cider with lemon in the mornings, and she tries to avoid spicy foods. - She has no congestion or post nasal drip. - She denies fever, chills, chest pain, SOB, abd pain, or n/v/d. Physical Exam General: Cooperative, healthy appearing, comfortable, no acute distress and well developed Orientation: Patient oriented x3 Limitations: No limitations Head: Normal to inspection Ears: Hearing grossly normal bilaterally Nose: Normal external nose present Face and sinus: Normal facial exam Mouth: Uvula is midline. Posterior pharynx is pink, no exudates. No tonsil swelling noted. Neck: Normal visual inspection and Yes full ROM Respiratory: Normal respiratory effort and able to speak in complete sentences. Clear to auscultation bilaterally. No w/r/r noted. Cardiovascular: Regular rate and rhythm. Normal S1 and S2. No m/r/g noted. GI: Normal to inspection. Soft to palpation and nontender. No guarding noted. Patient was informed and verbally consented to the use of an ambient scribe for clinic note documentation during this visit. [facility] Medical History (Updated 10/04/24 @ 08:25 by Preethi Hsu MD) Right leg DVT History of sarcoidosis Pre-op evaluation Thyroid nodule Hypothyroidism Vertigo GERD (gastroesophageal reflux disease) Mild major depression, single episode Goiter Elevated TSH Obese Impaired glucose tolerance Mixed hyperlipidemia Sarcoid Primary osteoarthritis of left knee History of DVT (deep vein thrombosis) Anxiety Surgical History Hx of colonoscopy History of section History of tubal ligation Family History Father Renal cancer Mother No problems noted. Brother Myocardial infarction Social History Housing: House Alcohol intake: current Alcohol intake frequency: holidays/special occasions only Alcohol type: wine Patient Tobacco Use Status: Never used Tobacco e-Cigarette/Vaping Use: Never Used Second Hand Smoke Exposure: No service: No Current occupational status: retired Cognitive needs: No Hearing needs: No Vision needs: No Review of Systems Const All systems reviewed & are unremarkable except as noted in HPI and below Physical Exam Vital Signs: Last Vital Signs Temp 97.7 F 02/20/25 10:08 Pulse 71 02/20/25 10:08 BP 108/72 02/20/25 10:08 Pulse Ox 95 02/20/25 10:08 Oxygen Delivery Method Room Air 02/20/25 10:08 BMI result Body Mass Index 34.9 Assessment & Plan Assessment & Plan (1) Bad taste in mouth: Code(s): R43.8 - Other disturbances of smell and taste Plan Most likely GERD vs hiatal hernia vs pharyngitis vs PUD plan - [place] diet as tolerared - Her current medication, pantoprazole, provides insufficient symptom control. - A prescription for famotidine (Pepcid) twice daily will be added to her regimen. - The patient was counseled to avoid acidic substances, including spicy foods, orange juice, pineapple juice, sodas, apple cider, and lemon. - If symptoms do not improve, she is advised to follow up with her primary care physician for further evaluation, which may include an endoscopy to rule out a hernia. Medications: New famotidine (Pepcid) 20 mg PO BID 60 tabs 0RF 30 days Coding Level of Care Code Est Pt Level 3 (31315) Diagnoses Bad taste in mouth R43.8
[2025-02-20 10:08] VITALS: BP 108/72; PULSE 71; TEMP 36.5; O2SAT 95; BMI 34.9
== END 2025-02-20 11:18 | disposition home or self-care (01) ==
PROVIDERS: PCP Internal Medicine; Visit Provider Physician Assistant Medical
DX: R43.8 Other disturbances of smell and taste (principal)

== ENCOUNTER → 2025-02-20 09:53 | Outpatient (BNVA) | payer MEDICARE, SELFPAY | PROVIDERS: PCP Internal Medicine; Visit Provider Physician Assistant Medical | DX: R43.8 Other disturbances of smell and taste (principal) | CPT/HCPCS: 99212 ==

== ENCOUNTER 2025-02-22 14:14 | Outpatient (AMB) | payer MEDICARE, SELFPAY ==
--- NOTE | 2025-02-22 14:36 | A.OFFVIS_ITS ---
Vital Signs 02/22/25 14:42 Height 5 ft 2 in Weight 189 lb 6.033 oz BMI 34.6 BP 124/80 Blood Pressure Location Lt brachial Position Sitting Pulse 53 Pulse Source Pulse Oximeter Pulse Oximetry (%) 96 Oxygen Delivery Method Room Air Intake Visit Reasons: OA Intake Note: Patient presents for OA follow up. 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 Information Interpreted: non-clinical & clinical Accompanied by: Self / Same As Patient Allergies codeine (CODEINE) Allergy (Intermediate, Verified 02/22/25 14:41) TACHYCARDIA phentermine Allergy (Intermediate, Verified 02/22/25 14:41) Palpitations Medication List - Last Reconciled 02/22/25 by Marie Littlejohn MD calcium carbonate-vitamin D3 500 mg-10 mcg (400 unit) (Oyster Shell Calcium- Vitamin D3) 1 tab PO DAILY 90 days famotidine (Pepcid) 20 mg PO BID 30 days meloxicam 15 mg PO DAILY HPI Comments Details: Patient is a 75-year-old female with GERD, neuropathy, polyarticular osteoarthritis, hypothyroidism, hyperlipidemia and history of sarcoidosis here today for follow up Interval History: Patient last seen 02/25/[address] Morrison - Not on DMARDs - follow-up after completion of her EMG/NCV of lower extremities. - She states that she feels better that last visit. She has been walking regularly. Recently she went to [place] and she was able to walk without any pains - Neuropathy sx improved Today - Not on any DMARDs - presents for evaluation of right hip pain that began after a fall three weeks ago. - The pain is localized to her right side, is worse with standing, and is characterized as an initial burning sensation followed by a feeling of coldness. - Meloxicam has not been effective for her symptoms. Rheumatologic History: Initial History: Patient has a history of biopsy-proven sarcoid which presented as Manjula syndrome in 2013. She was treated with prednisone and her symptoms resolved. Per most recent pulmonary note from April 2022 her sarcoid symptoms have remained inactive. Patient denies any new concerns today. She reports intermittent generalized lisa nt pain in her shoulders and knees. She reports increased pain in her shoulders that lasts for a few days to weeks, she attributes this to positioning in bed at night. She states her left shoulder has been more bothersome recently. She admits to intermittent left knee pain that is worse after prolonged sitting. Previously followed with Orthopedics and has not required any injections or recent orthopedic follow-up. States she walks frequently and stays active. She manages her symptoms with Tylenol and Voltaren gel. She has a history of DVT in the right leg in 2013. She was anticoagulated for a year. Currently on baby aspirin no recurrent episodes of DVT. She follows with Hematology every 6 months. Currently on levothyroxine for hypothyroidism. Current Rheumatology Medication(s): [facility] Medical History (Updated 10/04/24 @ 08:25 by Preethi Hsu MD) Right leg DVT History of sarcoidosis Pre-op evaluation Thyroid nodule Hypothyroidism Vertigo GERD (gastroesophageal reflux disease) Mild major depression, single episode Goiter Elevated TSH Obese Impaired glucose tolerance Mixed hyperlipidemia Sarcoid Primary osteoarthritis of left knee History of DVT (deep vein thrombosis) Anxiety Surgical History Hx of colonoscopy History of section History of tubal ligation Family History Father Renal cancer Mother No problems noted. Brother Myocardial infarction Social History Housing: House Alcohol intake: current Alcohol intake frequency: holidays/special occasions only Alcohol type: wine Patient Tobacco Use Status: Never used Tobacco e-Cigarette/Vaping Use: Never Used Second Hand Smoke Exposure: No service: No Current occupational status: retired Cognitive needs: No Hearing needs: No Vision needs: No Review of Systems Narrative Review of Systems - Musculoskeletal: Reports right-sided pain that is exacerbated by standing. - Neurological: Reports a burning and cold sensation in the area of pain. All other systems reviewed and are unremarkable except noted above Physical Exam Exam Exam: Vital signs reviewed Physical Examination CONSTITUITIONAL Patient alert and cooperative. Well appearing and in no apparent painful distress MSK Hip bursa: TTP over the left greater trichanteric bursa Knees * Left knee: Full ROM. No swelling noted. No TTP of the knee joint line. No TTP of pes anserine bursa. Ankles * Left ankle: Good ankle dorsiflexion and plantar flexion. No swelling. No TTP of the ankle joint Feet * Left foot: Negative squeeze test Vital Signs: Last Vital Signs Pulse 53 02/22/25 14:42 BP 124/80 02/22/25 14:42 Pulse Ox 96 02/22/25 14:42 Oxygen Delivery Method Room Air 02/22/25 14:42 BMI result Body Mass Index 34.6 Results Reviewed Results Reviewed: No relevant labs or imaging Assessment & Plan Assessment & Plan (1) Greater trochanteric bursitis of left hip: Code(s): M70.62 - Trochanteric bursitis, left hip Plan: #Left hip greater trochanteric bursitis after fall The patient's left-sided hip pain is localized over the bursa, consistent with bursitis. Meloxicam has not provided relief. A trial of high-dose ibuprofen one tablet three times daily for two weeks was prescribed. The patient was advised to take the medication with food and to apply ice to the affected area for inflammation. If her symptoms do not improve, a steroid injection into the bursa will be offered, with physical therapy as a subsequent option. Plan - Ibuprofen 800mg tid x 14 days - if no improvement will proceed with steroid injection - RTC prn Plan I spent 20 minutes reviewing the record, taking a history, examining the pa tient, discussing the treatment plan, ordering diagnostic work up and documenting in the medical record Medications: New ibuprofen 800 mg PO TID 42 tabs 0RF 14 days M70.62 - Trochanteric bursitis, left hip Coding Level of Care Code Est Pt Level 3 (43190) Diagnoses Greater trochanteric bursitis of left hip M70.62
[2025-02-22 14:42] VITALS: BP 124/80; PULSE 53; O2SAT 96; BMI 34.6
== END 2025-02-22 15:15 | disposition home or self-care (01) ==
LOC: HO.RHES 14:15
PROVIDERS: PCP Internal Medicine; Visit Provider Student in an Organized Health Care Education/Training Program
DX: M70.62 Trochanteric bursitis, left hip (principal)
CPT/HCPCS: 99213

== ENCOUNTER → 2025-02-22 14:14 | Outpatient (BNVA) | payer MEDICARE, SELFPAY | PROVIDERS: PCP Internal Medicine; Visit Provider Student in an Organized Health Care Education/Training Program | DX: M70.62 Trochanteric bursitis, left hip (principal) | CPT/HCPCS: 99212 ==

== ENCOUNTER 2025-03-06 07:21 | Outpatient (AMB) | payer MEDICARE, SELFPAY ==
--- NOTE | 2025-03-06 07:27 | MHC.PC.OV ---
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 Accompanied by: Self / Same As Patient Allergies codeine (CODEINE) Allergy (Intermediate, Verified 03/06/25 07:35) TACHYCARDIA phentermine Allergy (Intermediate, Verified 03/06/25 07:35) Palpitations Medication List - Last Reconciled 03/06/25 by Preethi Hsu MD famotidine (Pepcid) 20 mg PO BID 30 days ibuprofen 800 mg PO TID 14 days Tobacco use date assessed: 04/06/24 Fall risk assessment: No Falls in past year Last assessed Fall Risk: 03/06/25 Dental Screening Dental Screen Date: 05/19/24 HPI HPI Comments History of Present Illness Details This is a 74-year-old female with osteopenia and GERD that comes today complaining of lumbar pain radiating to the left leg associated with left hip pain and some numbness and tingling that started few weeks ago. This happens when she is standing up doing dishes. No fever, bowel or bladder incontinence. Last DEXA scan was this year showing osteopenia and I will order calcium with vitamin-D. She also complains of GERD symptoms that bothers her and I will order an upper GI series. X-ray will be order for the lumbar pain. Declines physical therapy for now. She also has mild major depression with anxiety and would like to start bupropion for this matter. [facility] Medical History (Updated 03/06/25 @ 08:00 by Preethi Hsu MD) Mild major depression, single episode Right leg DVT History of sarcoidosis Pre-op evaluation Thyroid nodule Hypothyroidism Vertigo GERD (gastroesophageal reflux disease) Goiter Elevated TSH Obese Impaired glucose tolerance Mixed hyperlipidemia Sarcoid Primary osteoarthritis of left knee History of DVT (deep vein thrombosis) Anxiety Surgical History Hx of colonoscopy History of section History of tubal ligation Family History Father Renal cancer Mother No problems noted. Brother Myocardial infarction Social History Housing: House Alcohol intake: current Alcohol intake frequency: holidays/special occasions only Alcohol type: wine Patient Tobacco Use Status: Never used Tobacco e-Cigarette/Vaping Use: Never Used Second Hand Smoke Exposure: No service: No Current occupational status: retired Cognitive needs: No Hearing needs: No Vision needs: No Questionnaire Thrive Questionnaire Date Thrive assessed: 04/06/24 I am a: Patient What is your living situation today?: I have a steady place to live Within the past 12 months, did the food you bought not last and you didn't have the money to get more?: Never true Within the past 12 months, did you worry whether your food would run out before you got money to buy more?: Never true Do you have trouble paying for medicines?: No Do you have trouble getting transportation to medical appointments?: No Do you have trouble paying your heating and electricity bill?: No Do you have trouble taking care of your child, family member or friend?: No Do you have trouble with day-to-day activities such as bathing, preparing meals, shopping, managing finances, etc.?: No Are you currently unemployed and looking for a job?: No Are you interested in more education?: No Currently or been in a relationship where the following occur: I choose not to answer THRIVE Score: 0 TR-7 AMB Questionnaire TR-7 Date TR - 7 assessed: 05/19/24 Source: Developed by Drs. Cristopher Donnelly, Olga Lidia Velasco, Esteban Don and colleagues, with an educational jace from [employer]. Review of Systems Const All systems reviewed & are unremarkable except as noted in HPI and below Card Denies chest pain at rest, Denies chest pain with activity, Denies edema, Denies irregular heart rhythm, Denies claudication, Denies dyspnea, Denies dyspnea on exertion, Denies orthopnea, Denies paroxysmal nocturnal dyspnea and Denies slow heart rate Resp Denies cough, Denies dyspnea and Denies dyspnea on exertion Physical exam (Primary Care) Vital Signs: Last Vital Signs Temp 98.0 F 03/06/25 07:28 Pulse 67 03/06/25 07:28 Resp 18 03/06/25 07:28 BP 128/72 03/06/25 07:28 Pulse Ox 95 03/06/25 07:28 Oxygen Delivery Method Room Air 03/06/25 07:28 BMI result Body Mass Index 34.2 BMI Assessment/Plan discussion: High BMI High, discussed plan: lifestyle, weight reduction, dietary and physical activity Tobacco/Smoking Status: Tobacco use Status Tobacco use date assessed 04/06/24 03/06/25 07:32 Patient Tobacco Use Status Never used Tobacco 03/06/25 07:32 e-Cigarette/Vaping Use Never Used 03/06/25 07:32 Thrive Assessment: Date of Thrive Assessment Date Thrive assessed 04/06/24 03/06/25 07:32 Currently or been in a relationship where the following occur: I choose not to answer Resp Effort & Inspection: normal respiratory effort Auscultation: clear to auscultation bilaterally Cardio Jugular venous distension: no JVD Rate: regular rate Rhythm: regular rhythm Heart sounds: S1 normal heart sound present and S2 normal heart sound present Extrem General: Yes full ROM Coding Level of Care Code Est Pt Level 4 (39801) Diagnoses Osteopenia, unspecified location M85.80 Osteopenia location: unspecified Gastroesophageal reflux disease without esophagitis K21.9 Esophagitis presence: without esophagitis Left hip pain M25.552 Lumbar pain M54.50 Mild major depression, single episode F32.0 Anxiety F41.9 Time Spent (min) 20 Assessment & Plan Assessment & Plan (1) Osteopenia: Code(s): M85.80 - Other specified disorders of bone density and structure, unspecified site Category: Medical Qualifiers: Osteopenia location: unspecified Qualified Code(s): M85.80 - Other specified disorders of bone density and structure, unspecified site Plan: Restart calcium with vitamin-D. Next DEXA scan should be 2026. (2) GERD (gastroesophageal reflux disease): Code(s): K21.9 - Gastro-esophageal reflux disease without esophagitis Category: Medical Qualifiers: Esophagitis presence: without esophagitis Qualified Code(s): K21.9 - Gastro-esophageal reflux disease without esophagitis Plan: Continue famotidine. Order upper GI series. Start omeprazole as needed. (3) Left hip pain: Code(s): M25.552 - Pain in left hip Category: Medical Plan: X-ray ordered. Continue ibuprofen as needed. (4) Lumbar pain: Code(s): M54.50 - Low back pain, unspecified Category: Medical Plan: X-ray ordered. Continue ibuprofen as needed. (5) Mild major depression, single episode: Code(s): F32.0 - Major depressive disorder, single episode, mild Category: Medical Plan: Start bupropion. (6) Anxiety: Code(s): F41.9 - Anxiety disorder, unspecified Category: Medical Plan: Start bupropion. Orders: Orders XR hip LT min 2V Today M25.552 - Pain in left hip XR lumbar spine 2-3V Today M54.50 - Low back pain, unspecified [place] upper GI series Today K21.9 - Gastro-esophageal reflux disease without esophagitis Free T4 (Free Thyroxine) Today E03.9 - Hypothyroidism, unspecified Thyroid Stimulating Hormone Today E03.9 - Hypothyroidism, unspecified Medications: New calcium carbonate-vitamin D3 500 mg-10 mcg (400 unit) (Oyster Shell Calcium-Vitamin D3) 1 tab PO BID 180 tabs 1RF 90 days
[2025-03-06 07:28] VITALS: BP 128/72; PULSE 67; RESP 18; TEMP 36.7; O2SAT 95; BMI 34.2
== END 2025-03-06 07:46 | disposition home or self-care (01) ==
LOC: HO.HMCH 07:22
PROVIDERS: Visit Provider Internal Medicine
DX: M85.80 Other specified disorders of bone density and structure, unspecified site (principal); K21.9 Gastro-esophageal reflux disease without esophagitis; M25.552 Pain in left hip; M54.50 Low back pain, unspecified; F32.0 Major depressive disorder, single episode, mild; F41.9 Anxiety disorder, unspecified

== ENCOUNTER → 2025-03-06 08:05 | Outpatient (BNV) | payer MEDICARE, SELFPAY | PROVIDERS: PCP Internal Medicine; Visit Provider Radiology Diagnostic Ultrasound | DX: M25.552 Pain in left hip (principal); M47.816 Spondylosis without myelopathy or radiculopathy, lumbar region | CPT/HCPCS: 72100; 73502 ==

== ENCOUNTER 2025-03-07 13:48 | Outpatient (REF) | payer MEDICARE, SELFPAY | END 2025-03-07 13:49 | disposition home or self-care (01) | LOC: HO.MAMMO 13:48 | PROVIDERS: Visit Provider Internal Medicine | DX: Z12.31 Encounter for screening mammogram for malignant neoplasm of breast (principal) | CPT/HCPCS: 77063; 77067 ==

== ENCOUNTER → 2025-03-07 14:00 | Outpatient (BNV) | payer MEDICARE, SELFPAY | PROVIDERS: Visit Provider Radiology Body Imaging | DX: Z12.31 Encounter for screening mammogram for malignant neoplasm of breast (principal) | CPT/HCPCS: 77063; 77067 ==